=== PATIENT | female | born 1935 | race Caucasian/White ===

== ENCOUNTER → 2016-12-11 | Outpatient (CLI) | payer MEDICARE, OTHER ==
[~2016-12-11] MED LIST: ASPI-482 PO; BESI5DRO OS; CALC-67 PO; CALC500T27 PO; CHOL20002 PO; DOCU100C PO; GABA-585 PO; HYDR-2666 PO; HYDR-2762 PO; HYDR1TAB20 PO; MULT-658 PO; OMEG1CAP16 PO; OMEP20TA PO; PRED5DRO6 LEFTEYE; RISE150T3 PO
--- NOTE | 2016-12-12 03:05 | PAIN ---
DATE OF SERVICE: 12/11/2016 DIAGNOSES: Lumbar radiculopathy with lumbar degenerative disk disease and lumbar spondylosis. HISTORY OF PRESENT ILLNESS: The patient is a 81-year-old female who returns for followup status post medication management with hydrocodone, also gabapentin. The patient reports she has been doing fairly well with this and is on a very stable regimen, has a good decrease in pain of about 70-75% in the low back and leg, has had increased pain recently over the past few months where this weather has been colder outside and reports that she feels that she is beginning to develop some tolerance to the medication. We discussed this in some detail previously and we will make a change on her prescriptions this time to 7.5 mg for the next 90 days and then plan on reducing the pain medication in the future as tolerated. The patient has had appropriate K-TRACS reporting today, appropriate urinalysis today as well. The patient reports the pain is 5 on a scale of 10 today. Describes it constant aching pain across the low back and left lower extremity more than the right and the posterior gluteus, posterolateral thigh and calf, but only intermittent and not present with sitting or lying down. She is sleeping well at night. It is only present with walking, standing more than about 15 minutes or so. The patient reports no new motor or sensory deficits, no new bowel or bladder incontinence or other complaints. PHYSICAL EXAMINATION: VITAL SIGNS: The patient's blood pressure is 147/87, pulse is 105, respirations 18, temperature 97.9 degrees Fahrenheit, height is 5 feet, weight is 116 pounds. GENERAL: The patient is awake, alert, oriented, appropriate, very pleasant demeanor. HEENT: Shows normocephalic, atraumatic. Extraocular movements are intact and symmetrical. Oral cavity shows mucous membranes are moist and pink. The patient wears eye glasses. NECK: Shows anterior throat supple without palpable lymphadenopathy noted. Swallow reflex is symmetrical. Neck shows full rotation and motion of cervical spine, both laterally greater than 45 degrees right and left as well as extension and forward flexion to full extension without difficulty and full flexion without difficulty. CHEST: Shows normal on inspection. Breath sounds are clear to auscultation bilaterally. No wheezes, rales or rhonchi are auscultated. The patient has had well-healed sternotomy scar on inspection. ABDOMEN: Shows nontender, nondistended. No palpable organomegaly. No rebound or guarding demonstrated. HEART: Shows S1 and S2 clear. No murmurs auscultated. BACK: The patient's back shows spine grossly in midline with moderate tenderness to palpation in the middle and lower distribution of the paraspinous muscles bilaterally, but appears roughly symmetrical. No evidence of atrophy, hypertrophy. She has normal muscle girth with palpation, is firm and diffusely tender again to a moderate extent in the low lumbar distribution and mid lumbar distribution without asymmetry. No tenderness over the sacrum or sacroiliac regions. The patient shows good rotation and motion of the lumbar spine both laterally as well as extension and forward flexion without difficulty or pain reported. LOWER EXTREMITIES: Show deep tendon reflexes at 1+ in the patellar and tendo calcaneus tendons. Motor exam is strong with 5/5 dorsiflexion and extension, quadriceps and hamstring flexion approximately 4/5, but is symmetrical. Peripheral pulses are 1+ posterior tibial and dorsalis pedis pulses. No peripheral edema is noted. No clubbing. Lower extremities are warm and dry to touch, equal in color and appearance. The patient is still walking with help of a walker and has a shuffling gait with ambulation. Options were discussed with the patient. The patient's old chart was reviewed, as her current medications regimen and updated. Current review of systems updated today as well. We will refill the patient's medication with 7.5 mg dose of hydrocodone instead of 5 mg that she has been taking ____, indeed she appears to be developing some physiologic tolerance to the medication. The patient was given instruction as well as side effects to be aware of with the medications, a 90-day supply. We will follow up at the end of that time period or sooner as necessary. The patient is also given prescription for gabapentin with instructions, side effects to be aware of each of the medications discussed. The patient will follow up as scheduled. PRAFUL CHOUDHURY MD DR: FRANDY/jeremías JOB#: [id number] / [id number]
== END | disposition home or self-care (01) ==
LOC: PNCL 13:23
PROVIDERS: ATTEND Anesthesiology
DX: M51.16 Intervertebral disc disorders with radiculopathy, lumbar region (principal); M47.896 Other spondylosis, lumbar region
CPT/HCPCS: G0463

== ENCOUNTER → 2017-03-09 | Outpatient (CLI) | payer MEDICARE, OTHER ==
--- NOTE | 2017-03-10 04:19 | PAIN ---
DATE OF SERVICE: PROGRESS NOTE FOR PAIN CLINIC DIAGNOSES: Lumbar radiculopathy with lumbar degenerative disk disease and lumbar spondylosis. HISTORY OF PRESENT ILLNESS: The patient is a 81-year-old female, who returns for followup status post medication management with hydrocodone and gabapentin. The patient reports that she is doing well with this; the gabapentin makes her slightly sleepy. She has been taking 200 mg 3 times a day and was tolerating it fairly well. Reports otherwise that she is having some constipation with the hydrocodone; otherwise, the medicine is about 75% improving her pain. States that she is having some increased pain in her left low back and leg today, rated as an 8 on a scale of 10 and it is ____ about a 5 on a scale of 10. It is aching, sharp, tingling, burning, and radiating, also with some weakness when she is standing more than just about 10 minutes. The patient reports that she was doing some raking in her yard over the past few days and ____ exacerbated the pain and the radiating pain in her left leg. The patient reports no new motor or sensory deficits, no new bowel or bladder incontinence, or other complaints. PHYSICAL EXAMINATION: VITAL SIGNS: Today, the patient's blood pressure is 132/66, pulse 77, respirations 18, temperature 97.7 degrees Fahrenheit, height is 5 feet, and weight is 115 pounds. GENERAL: The patient is awake, alert, oriented, appropriate, very pleasant demeanor. HEENT: Head shows normocephalic, atraumatic. Extraocular movements are intact, symmetrical. Oral cavity, mucous membranes are moist and pink. Dentition is intact. NECK: Shows anterior throat supple without palpable lymphadenopathy noted. Swallow reflex is symmetrical. Neck shows full rotational motion of cervical spine, both laterally as well as extension and flexion without difficulty. CHEST: Shows breath sounds clear to auscultation bilaterally, normal on inspection. HEART: Shows S1 and S2 clear. No murmurs auscultated. ABDOMEN: Soft, nontender, and nondistended. No palpable organomegaly is noted. No rebound or guarding demonstrated. BACK: Shows spine grossly midline. Slight exaggeration of thoracic kyphosis and some flattening of lumbar lordotic curvature. Lumbar paraspinous musculature is symmetrical on inspection; with palpation, it is firm throughout the upper, middle and lower distribution of paraspinous muscles without radiation and without trigger points. The patient does show good rotational motion of lumbar spine, both laterally as well as extension and flexion without significant pain reported. EXTREMITIES: Lower extremities show deep tendon reflexes at 1+ in the patellar tendons. Motor exam is approximately 4 on a scale of 5, but symmetrical and equal with dorsiflexion, extension, and quadriceps and hamstring flexion. Options were discussed with the patient. The patient's old chart was reviewed and her current medication regimen updated. Current review of systems updated today as well. We will proceed with refilling of her gabapentin to 200 mg 3 times daily as well as hydrocodone 7.5 mg with instructions and side effects to be aware of. The patient was given a 2-month prescription and will be return to clinic in approximately 60 days, sooner if necessary. The patient was counseled as to activity levels as well as side effects to be aware of, as well as medication regimen and side effects to be aware of. Also, try Medrol Dosepak to see if this may decrease some of the radicular pain that she is having in her left leg. She is adamantly against trying any interventional techniques since she has had these in the past without success. Also discussed the patient's smoking habits and she is trying to decrease this and encouraged this as well. PRAFUL CHOUDHURY MD DR: FRANDY/jeremías JOB#: [id number] / [id number]
== END | disposition home or self-care (01) ==
LOC: PNCL 11:07
PROVIDERS: ATTEND Anesthesiology
DX: M51.16 Intervertebral disc disorders with radiculopathy, lumbar region (principal); M47.896 Other spondylosis, lumbar region
CPT/HCPCS: G0463

== ENCOUNTER → 2017-05-04 | Outpatient (CLI) | payer MEDICARE, OTHER ==
[~2017-05-04] MED LIST changes: +CALC-31 PO; -CALC-67 PO; -CALC500T27 PO; +CALC500T30 PO; +DOCU-150 PO; -DOCU100C PO; -HYDR-2666 PO; +HYDR-2758 PO; +MULT-99 PO; -OMEG1CAP16 PO; +OMEG1CAP27 PO; -OMEP20TA PO; +OMEP20TA8 PO; +PRED5DRO16 LEFTEYE; -PRED5DRO6 LEFTEYE
--- NOTE | 2017-05-05 05:38 | PAIN ---
DATE OF SERVICE: 05/04/2017 PROGRESS NOTE FOR PAIN CLINIC DIAGNOSES: Lumbar radiculopathy with lumbar degenerative disk disease and lumbar spondylosis. HISTORY OF PRESENT ILLNESS: The patient is an 82-year-old female who returns for followup status post medication management with hydrocodone and gabapentin. The patient reports she is doing very well ____ stable regimen. Still reports pain in the low back and left lower extremity greater than right as previously. The patient has had interventional techniques in the past, but not very significantly improved and reports that she does fairly well with the hydrocodone and gabapentin and is pleased with her progress thus far. The patient reports her pain as a 9 on a scale of 10 at its worst, and is a 5 currently today, on an average is a 6. The patient reports it dull, shooting, tingling, burning with some constant pain in the left foot, which is more of a burning pain and worse at night. The patient reports it awakens her from sleep occasionally, she repositions or takes her pain medication, gets out of bed, changing positions. She can get back to sleep after about 4 hours of sleep, this happens occasionally, not every night. The patient reports no new motor or sensory deficits, no new bowel or bladder incontinence or other complaints. PHYSICAL EXAMINATION: VITAL SIGNS: Today, the patient's blood pressure is 133/73, pulse 72, respirations are 19, temperature 94.0 degrees Fahrenheit. Height is 5 feet, weight is 127 pounds. GENERAL: The patient is awake, alert, oriented, appropriate, very pleasant demeanor. HEENT: Head shows normocephalic, atraumatic. Extraocular movements are intact, symmetrical. Oral cavity, mucous membranes are moist and pink. Dentition is intact. NECK: Shows anterior throat supple without palpable lymphadenopathy noted. Swallow reflex is symmetrical. CHEST: Shows normal on inspection. Breath sounds are clear to auscultation bilaterally. HEART: Shows S1 and S2 clear. ABDOMEN: Soft, nontender, nondistended. No palpable organomegaly. There is no rebound or guarding demonstrated. BACK: Shows spine grossly in the midline. Slight exaggeration of thoracic kyphosis, mild flattening of lumbar lordotic curvature. Lumbar paraspinous musculature shows symmetrical and on inspection with palpation shows moderate tenderness diffusely, but only moderately in the low and mid lumbar distribution. Muscle girth is normal with tight firm musculature bilaterally, but without asymmetry, without trigger points or radiation. No tenderness over the sacroiliac regions over the spinous processes. The patient shows good rotation and motion of the lumbar spine, both laterally as well as extension and flexion without significant pain reported. Lower extremities showed deep tendon reflexes 1+ in the patellar and tendo calcaneus tendons are equal. Motor exam is strong with 5/5 dorsiflexion, extension, quadriceps and hamstring flexion and symmetrical bilaterally. PLAN: Options were discussed with the patient. The patient's old chart was reviewed, her current medication regimen and updated. Current review of systems updated today as well. We will refill the patient's medication, hydrocodone and gabapentin with instructions, side effects to be aware of. I also talked about increasing the gabapentin 3 tablets 3 times daily and she will start to see if this is effective. If better pain control, we will call on additional medications for her for the gabapentin. The patient will return to the clinic in approximately 2 months. I have given 2-month prescription with instructions, side effects to be aware of discussed. Again, the patient has had appropriate K-TRACS reporting as well as appropriate urinalysis to date. We will maintain the patient's medication at this level. PRAFUL CHOUDHURY MD DR: FRANDY/jeremías JOB#: [id number] / [id number]
== END | disposition home or self-care (01) ==
LOC: PNCL 11:37
PROVIDERS: ATTEND Anesthesiology
DX: M51.16 Intervertebral disc disorders with radiculopathy, lumbar region (principal); M47.896 Other spondylosis, lumbar region
CPT/HCPCS: G0463

== ENCOUNTER → 2017-07-14 | Outpatient (CLI) | payer MEDICARE, OTHER ==
--- NOTE | 2017-07-14 15:34 | PAIN ---
DATE OF SERVICE: 07/14/2017 DIAGNOSES: Lumbar radiculopathy with lumbar degenerative disk disease and lumbar spondylosis. HISTORY OF PRESENT ILLNESS: The patient is an 82-year-old female who returns for followup status post medication management with hydrocodone and gabapentin for low back and bilateral lower extremity pain. The patient reports she is doing fairly well with this with about a 75% improvement overall with no side effects with the medications, still some pain in the low back and in the lower extremities bilaterally, but the patient reports she can deal with it, she is able to ambulate with the help of a walker, reports the pain is a 9 on a scale of 10 at its worse with increased activity, 6 at its least and is currently an 8. The patient reports an aching, dull, tingling, burning, stabbing sensation, also becoming constant without the pain medication, and with the medication is about 75% improved as noted and again with no side effects. The patient reports no new motor or sensory deficits, no new bowel or bladder incontinence. She is sleeping well at night, better with sitting or lying down, but worse with standing and walking and feels that she is becoming more in a forward flexed posture and she is trying to keep mindful about this and maintaining good posture. PHYSICAL EXAMINATION: VITAL SIGNS: Today, the patient's blood pressure is 119/74, pulse 72, respirations 18, temperature 97.7 degrees Fahrenheit, height is 5 feet, weight is 111 pounds. GENERAL: The patient is awake, alert, oriented, appropriate, very pleasant demeanor. HEENT: Normocephalic, atraumatic. Extraocular movements are intact, symmetrical. Oral cavity, mucous membranes are moist and pink. Dentition is intact. NECK: Shows anterior throat supple. CHEST: Shows normal on inspection. Breath sounds are clear to auscultation bilaterally. HEART: Shows S1 and S2 clear. ABDOMEN: Soft, nontender, nondistended. No palpable organomegaly. There is no rebound or guarding demonstrated. BACK: Shows spine grossly in midline with increased thoracic kyphosis and some flattening of the lumbar lordotic curvature. Lumbar paraspinous muscles show symmetrical on inspection with palpation shows moderate tenderness throughout the upper, middle and lower distribution, but only diffusely without radiation. No tenderness over the sacrum or sacroiliac regions. Lower extremities show deep tendon reflexes 1+/4 in the patellar and tendo calcaneus tendons are equal. Motor exam is strong with dorsiflexion and extension rated at 4/5, but equal and symmetrical. No peripheral edema is noted. Peripheral pulses are 1+ bilaterally in the posterior tibial distribution. The patient is walking again with the help of a walker without favoring the right or left lower extremity significantly, but with a semi-shuffling gait, again using a walker for ambulation. Options were discussed with the patient and the patient's old chart was reviewed as her current medication regimen updated, and current review of systems updated today as well and we will refill the patient's hydrocodone as well as gabapentin at 300 mg 3 times daily, hydrocodone 7.5 mg up to 4 times a day with instructions and side effects to be aware of discussed with each. The patient will follow up in approximately 2 months, was given prescriptions for 2 months. PRAFUL CHOUDHURY MD DR: FRANDY/jeremías JOB#: [id number] / [id number]
== END | disposition home or self-care (01) ==
LOC: PNCL 10:43
PROVIDERS: ATTEND Anesthesiology
DX: M51.16 Intervertebral disc disorders with radiculopathy, lumbar region (principal); M47.9 Spondylosis, unspecified
CPT/HCPCS: G0463

== ENCOUNTER → 2017-09-08 | Outpatient (CLI) | payer MEDICARE, OTHER ==
--- NOTE | 2017-09-08 12:53 | PAIN ---
DATE OF SERVICE: 09/08/2017 DATE OF SERVICE: 09/08/2017 DIAGNOSES: Lumbar radiculopathy with lumbar degenerative disk disease, lumbar spondylosis. HISTORY OF PRESENT ILLNESS: The patient is an 82-year-old female who returns for followup status post medication management with hydrocodone and gabapentin. The patient reports she has been doing fairly well with this, fairly good reduction in pain about 80% or so, still some significant pain in the left lower extremity, mostly in the posterior gluteus, thigh, lateral anterior thigh, posterior lower leg, anterior lower leg to the foot, worse with walking and standing, but the patient reports that it is "tolerable." The patient reports the gabapentin seems to be doing fairly well. We had increased to two 300 mg dose after her last visit and reports no side effects from its mild sedation initially, but now that seems to be subsiding. The patient reports that she still has pain in the back and leg. It is a tingling, burning quality with aching, sharp and shooting pain as well, rates it as a 9 on a scale of 10 at its worst, 7 on average and a 6 at its least, and it is a 6 today. The patient reports no new motor or sensory deficits, no new bowel or bladder incontinence or other complaints. Again, no significant side effects with the medication. The patient has had appropriate K-TRACS reporting in the past as well as appropriate urinalysis. We will obtain both of these today as well as renew patient's narcotic contract for updated documentation purposes. PHYSICAL EXAMINATION: VITAL SIGNS: Today, the patient's blood pressure 139/86, pulse is 83, respirations are 18, temperature 97.9 degrees Fahrenheit. Height is 5 feet 1 inch, weight is 113 pounds. GENERAL: The patient is awake, alert, oriented, appropriate, very pleasant demeanor. HEENT: Head shows normocephalic, atraumatic. Extraocular movements are intact and symmetrical. Oral cavity shows mucous membranes moist and pink. Dentition is intact. NECK: Shows anterior throat supple without palpable lymphadenopathy noted. Swallow reflex is symmetrical. CHEST: Shows normal on inspection. Breath sounds are clear to auscultation bilaterally. HEART: Shows S1 and S2 clear. ABDOMEN: Soft, nontender, nondistended. No palpable organomegaly, no rebound or guarding demonstrated. BACK: The patient's back shows spine grossly in midline with some mild flattening of lumbar lordotic curvature, with palpation shows some moderate tenderness in the lumbar paraspinous muscles, but are symmetrical on inspection without radiation, without trigger points bilaterally. The patient reports no tenderness with rotational motion, which is about 10 degrees right and left as well as extension 10 degrees, forward flexion 45 degrees without significant pain reported. EXTREMITIES: Lower extremities show deep tendon reflexes 1+ in the patellar and tendo calcaneus tendons. Motor exam remains about 4 on a scale of 5, but equal, good dorsiflexion, extension, quadriceps and hamstring flexion and symmetrical. Peripheral pulses are 1+. No peripheral edema is noted bilaterally. PLAN: Options were discussed with the patient and the patient's old chart was reviewed as her current medication regimen updated. Current review of systems updated today as well. We will refill the patient's hydrocodone for a 2-month prescription 7.5 mg up to 4 times daily as necessary for pain and also gabapentin 300 mg 3 times daily. The patient was given instruction as well as side effects to be aware of each of the medications and will follow up in approximately 2 months or sooner if necessary. Again, the patient has had appropriate K-TRACS reporting, appropriate urinalysis. We will obtain urinalysis today as well as renew the narcotic contract. The patient will be given a copy of this also and will follow up as scheduled. PRAFUL CHOUDHURY MD DR: FRANDY/jeremías JOB#: [id number] / [id number]
== END | disposition home or self-care (01) ==
LOC: PNCL 11:50
PROVIDERS: ATTEND Anesthesiology
DX: M51.16 Intervertebral disc disorders with radiculopathy, lumbar region (principal); M47.9 Spondylosis, unspecified; M79.605 Pain in left leg
CPT/HCPCS: G0463

== ENCOUNTER → 2017-11-03 | Outpatient (CLI) | payer MEDICARE, OTHER ==
--- NOTE | 2017-11-03 22:15 | PAIN ---
DATE OF SERVICE: 11/03/2017 DIAGNOSES: Lumbar radiculopathy with lumbar degenerative disk disease, lumbar spondylosis. HISTORY OF PRESENT ILLNESS: The patient is an 82-year-old female who returns for followup status post medication management with both hydrocodone and gabapentin. The patient reports about 80-85% improvement with medications, is doing quite well with these, no significant side effects, some minor constipation, but is controlling this fairly well with hydration and [id number] laxatives. The patient reports she was standing on her toes, putting some tape on a window a few days back and when she got off her toes, she felt some increased pain in her left low back and left leg, but has been getting better since that time. The patient reports that her pain is a 9 on a scale of 10 at its worst, 8 on average and a 6 at its least and is a 6 today. The patient reports it is sharp, stabbing, shooting, was more constant after standing on her toes with the window taping, but now doing much better. The patient reports she has been sleeping well at night, feels much better with sitting or lying down, worse with standing, walking again with standing on her tiptoes. The patient reports no other complaints, no new motor or sensory deficits, bowel or bladder incontinence or other concerns. PHYSICAL EXAMINATION: VITAL SIGNS: Today, the patient's blood pressure is 132/80, pulse 91, respirations 18, temperature is 97.9 degrees Fahrenheit, height is 5 feet 1 inch, weight is 112 pounds. GENERAL: The patient is awake, alert, oriented, appropriate, has a very pleasant demeanor. HEENT: Shows normocephalic, atraumatic. Extraocular movements are intact and symmetrical. Oral cavity shows mucous membranes are moist and pink. Dentition is intact. NECK: Shows anterior throat is supple without palpable lymphadenopathy noted. Swallow reflex is symmetrical. CHEST: Shows normal on inspection. Breath sounds are clear to auscultation bilaterally. HEART: Shows S1, S2 clear. No murmurs auscultated. ABDOMEN: Soft, nontender, nondistended. No palpable organomegaly is noted. No rebound or guarding demonstrated. MUSCULOSKELETAL: Back shows spine grossly in the midline. Lumbar paraspinous musculature shows normal and symmetrical. Thoracic curvature shows increased thoracic kyphosis. Moderate tenderness with palpation in the low thoracic and lumbar paraspinous muscles throughout the upper, middle and lower distribution without radiation. The patient shows no tenderness over the sacrum or sacroiliac regions. Lower extremities show deep tendon reflexes at 1+ in the patellar and tendo-calcaneus tendons. Motor exam is approximately 4 on a scale of 5 and equal and symmetrical bilaterally with dorsiflexion, extension, quadriceps and hamstring flexion. Peripheral pulses are 1+. No peripheral edema is noted. PLAN: Options were discussed with the patient. The patient's old chart was reviewed as her current medication regimen and updated. Current review of systems updated today as well and we will refill the patient's hydrocodone as well as gabapentin with instructions, side effects to be aware with each of the medications. The patient was encouraged to increase activity as tolerated. She is using a walker still to ambulate. Has a significant shuffling gait, but without significant favoring of one side or the other, right or left lower extremity. The patient was also given samples for Symproic for constipation to try with instructions, side effects to be aware were discussed. If significantly improved, we will have her called in a prescription for these as well. The patient will follow up in approximately 2 months, was given a 60-day prescription supply of medications or sooner if necessary. PRAFUL CHOUDHURY MD DR: FRANDY/jeremías JOB#: [id number] / [id number]
--- NOTE | 2017-11-03 23:23 | PAIN ---
DATE OF SERVICE: 11/03/2017 PROGRESS NOTE FOR PAIN CLINIC DIAGNOSES: Lumbar radiculopathy with lumbar degenerative disk disease and lumbar spondylosis. HISTORY OF PRESENT ILLNESS: The patient is an 82-year-old female who returns for followup status post medication management with both hydrocodone and gabapentin. The patient was last seen on 09/08/2017. The patient reports she is doing fairly well, on a very stable regimen, with approximately 75-80% improvement in her pain with the medication. The patient reports she was standing on her toes the other day and putting some tape on a window, which caused some increased pain in her left hip and leg, but otherwise she is doing fairly well. No new motor or sensory deficits or other complaints. INCOMPLETE DICTATION PRAFUL CHOUDHURY MD DR: FRANDY/jeremías JOB#: [id number] / [id number]
== END | disposition home or self-care (01) ==
LOC: PNCL 11:36
PROVIDERS: ATTEND Anesthesiology
DX: M54.16 Radiculopathy, lumbar region (principal); M47.896 Other spondylosis, lumbar region; M51.36 Other intervertebral disc degeneration, lumbar region; M25.552 Pain in left hip
CPT/HCPCS: G0463

== ENCOUNTER → 2017-12-29 | Outpatient (CLI) | payer MEDICARE, OTHER | END | disposition home or self-care (01) | LOC: PNCL 11:53 | DX: M51.16 Intervertebral disc disorders with radiculopathy, lumbar region (principal); K59.00 Constipation, unspecified | CPT/HCPCS: G0463 ==

== ENCOUNTER → 2018-03-02 | Outpatient (CLI) | payer MEDICARE, OTHER | END | disposition home or self-care (01) | LOC: PNCL 11:35 | DX: M51.16 Intervertebral disc disorders with radiculopathy, lumbar region (principal); M47.816 Spondylosis without myelopathy or radiculopathy, lumbar region | CPT/HCPCS: G0463 ==

== ENCOUNTER 2018-04-20 11:46 | Emergency (ER) | payer MEDICARE, OTHER ==
[2018-04-20] MEDS: ACETAMINOPHEN 325 MG TABLET. PO (12:45)
[2018-04-20] MEDS: IV NORMAL SALINE 500ML BAG 500 ML IV (13:24)
[2018-04-20 13:25] LABS: ADD MAN DIFF? NO
[2018-04-20 13:27] LABS: BASO # 0.1 x10^3/uL (0.0-0.2); BASO % 1 % (0-3); EOS # 0.1 x10^3/uL (0.0-0.7); EOS % 1 % (0-3); HEMATOCRIT 40.4 % (36.0-47.0); HEMOGLOBIN 13.9 g/dL (12.0-15.5); LYMPH # 2.2 x10^3/uL (1.0-4.8); LYMPH % 24 % (24-48); MEAN CORPUSCULAR HEMOGLOBIN 33 pg (25-35); MEAN CORPUSCULAR HGB CONC 34 g/dL (31-37); MEAN CORPUSCULAR VOLUME 97 fL (79-100); MONO # 0.5 x10^3/uL (0.0-1.1); MONO % 6 % (0-9); NEUT # 6.2 x10^3uL (1.8-7.7); NEUT % 68 % (31-73); PLATELET COUNT 186 x10^3/uL (140-400); RED BLOOD COUNT 4.16 x10^6/uL (3.50-5.40); RED CELL DISTRIBUTION WIDTH 12.9 % (11.5-14.5)
[2018-04-20 13:36] LABS: ANION GAP 8 (6-14); BLOOD UREA NITROGEN 16 mg/dL (7-20); BUN/CREATININE RATIO 23 (6-20); CALCIUM 9.3 mg/dL (8.5-10.1); CARBON DIOXIDE 30 mmol/L (21-32); CHLORIDE 103 mmol/L (98-107); CREATININE 0.7 mg/dL (0.6-1.0); GFR 80.3; GLUCOSE 90 mg/dL (70-99); POTASSIUM 4.1 mmol/L (3.5-5.1); SODIUM 141 mmol/L (136-145)
[2018-04-20 13:42] LABS: ALBUMIN 3.8 g/dL (3.4-5.0); ALBUMIN/GLOBULIN RATIO 1.2 (1.0-1.7); ALK PHOS 108 U/L (46-116); ALT (SGPT) 17 U/L (14-59); AST (SGOT) 18 U/L (15-37); MAGNESIUM 2.1 mg/dL (1.8-2.4); TOTAL BILIRUBIN 0.3 mg/dL (0.2-1.0)
[2018-04-20 13:46] LABS: TROPONINI < 0.017 ng/mL (0.000-0.055)
== END 2018-04-20 14:47 | disposition home or self-care (01) ==
LOC: ER 11:46
DX: S00.03XA Contusion of scalp, initial encounter (principal); S30.0XXA Contusion of lower back and pelvis, initial encounter; G89.29 Other chronic pain; J44.9 Chronic obstructive pulmonary disease, unspecified; F17.210 Nicotine dependence, cigarettes, uncomplicated; W18.39XA Other fall on same level, initial encounter; Y93.89 Activity, other specified; Y99.8 Other external cause status; Y92.89 Other specified places as the place of occurrence of the external cause
CPT/HCPCS: 36415; 70450; 71045; 72220; 80053; 83735; 84484; 85025; 93005; 99285-25; J7040

== ENCOUNTER → 2018-05-05 | Outpatient (CLI) | payer MEDICARE, OTHER | END | disposition home or self-care (01) | LOC: PNCL 14:18 | DX: M51.16 Intervertebral disc disorders with radiculopathy, lumbar region (principal); M47.896 Other spondylosis, lumbar region; J44.9 Chronic obstructive pulmonary disease, unspecified | CPT/HCPCS: G0463 ==

== ENCOUNTER → 2018-06-22 | Outpatient (CLI) | payer MEDICARE, OTHER | END | disposition home or self-care (01) | LOC: KCIC CT 12:04 | DX: J43.9 Emphysema, unspecified (principal); I25.10 Atherosclerotic heart disease of native coronary artery without angina pectoris; R91.8 Other nonspecific abnormal finding of lung field; Z87.891 Personal history of nicotine dependence | CPT/HCPCS: 71250 ==

== ENCOUNTER → 2018-07-13 | Outpatient (CLI) | payer MEDICARE, OTHER ==
[2018-04-20 14:00] VITALS: BP 178/79
--- NOTE | 2018-07-13 19:51 | PAIN ---
DATE OF SERVICE: 07/13/2018 PROGRESS NOTE TO THE PAIN CLINIC DIAGNOSES: Lumbar radiculopathy with lumbar degenerative disk disease, lumbar spondylosis. HISTORY OF PRESENT ILLNESS: This is an 83-year-old female who returns for followup status post medication management with hydrocodone and gabapentin. The patient reports she has been doing very well, has been on very stable regimen with about 80% improvement overall with the pain, still some pain, throbbing and aching pain in the left leg greater than the right, but only with extended walking or standing. She is using a walker when she is ambulating. The patient reports pain is aching, sharp, stabbing, becoming constant, severe with standing continuously, but better with sitting or lying down, does not awaken her from sleep at night. She was much better with sitting even for a few minutes, the pain has subsided pretty significantly. The patient reports it is a 9 on a scale of 10 at its worst, 8 on average, 7 at its least and is a 7 today. The patient reports no new motor or sensory deficits, no new bowel or bladder incontinence or other complaints. She has been decreasing her activity recently as the pain has been somewhat more noticeable. She has been somewhat concerned about recent chest x-ray that she had with her primary physician showing an area of shadow on her right lung, this is undergoing further workup at this time. PHYSICAL EXAMINATION: VITAL SIGNS: The patient's blood pressure 121/79, pulse 83, respirations 18, temperature 98.5 degrees Fahrenheit, height is 5 feet 1 inch, weight is 107 pounds. GENERAL: The patient is awake, alert, oriented, appropriate, very pleasant demeanor. HEENT: Head shows normocephalic, atraumatic. Extraocular movements are intact and symmetrical. Oral cavity: Mucous membranes moist and pink. Dentition is intact. NECK: Shows anterior throat supple without palpable lymphadenopathy noted. Swallow reflex symmetrical. CHEST: Shows normal with inspection. Breath sounds are distant, but clear to auscultation bilaterally. No rales, rhonchi or wheezes. HEART: Shows S1, S2 clear. No murmurs auscultated. ABDOMEN: Soft, nontender, nondistended. No palpable organomegaly. There is no rebound or guarding demonstrated. BACK: Shows spine grossly in the midline. Slight exaggeration of thoracic kyphosis and some minor flattening of lumbar lordotic curvature. Lumbar paraspinous muscle shows symmetrical on inspection and palpation, shows some moderate tenderness with palpation, but only diffusely in the low lumbar distribution without radiation. The patient has good rotational motion of lumbar spine, both laterally as well as extension and flexion. EXTREMITIES: The patient's lower extremities show deep tendon reflexes 1+ in the patellar and tendo calcaneus tendons. Motor exam is strong with 5/5 dorsiflexion, extension, quadriceps and hamstring flexion and equal and symmetrical. Peripheral pulses are 1+ posterior tibia. No peripheral edema is noted bilaterally. PLAN: Options were discussed with the patient. The patient's old chart was reviewed as her current medication regimen updated. Current review of systems updated today as well and we will refill the patient's hydrocodone 7.5 mg for 2-month prescription. The patient has had appropriate K-TRACS reporting as well as appropriate urinalysis to date. Also, refilled gabapentin, the patient will take it 3 times daily with instructions and side effects to be aware of as discussed with each medications and the patient will follow up in approximately 2 months as scheduled. Again, the patient had appropriate K-TRACS reporting as well as appropriate urinalysis to date and we will have her return in 2 months or sooner if necessary. PRAFUL CHOUDHURY MD DR: FRANDY/jeremías JOB#: [id number] / [id number]
== END | disposition home or self-care (01) ==
LOC: PNCL 13:44
PROVIDERS: ATTEND Anesthesiology
DX: M51.16 Intervertebral disc disorders with radiculopathy, lumbar region (principal); M47.896 Other spondylosis, lumbar region; J43.9 Emphysema, unspecified; I25.10 Atherosclerotic heart disease of native coronary artery without angina pectoris; Z87.891 Personal history of nicotine dependence
CPT/HCPCS: G0463

== ENCOUNTER 2018-07-29 08:24 | Outpatient (CLI) | payer MEDICARE, OTHER ==
[~2018-07-29] VITALS: Ht 152.4 cm; Wt 48.1 kg
[~2018-07-29 08:24] MED LIST changes: -CHOL20002 PO; +[UNRECOGNIZED DRUG - CODE] PO
[2018-07-29] MEDS ORDERED: SERT25TA4 PO (08:39)
[2018-07-29 08:54] LABS: BASO % 1 % (0-3); EOS # 0.1 x10^3/uL (0.0-0.7); EOS % 1 % (0-3); HEMATOCRIT 42.8 % (36.0-47.0); HEMOGLOBIN 14.4 g/dL (12.0-15.5); LYMPH # 2.5 x10^3/uL (1.0-4.8); LYMPH % 31 % (24-48); MEAN CORPUSCULAR HEMOGLOBIN 32 pg (25-35); MEAN CORPUSCULAR HGB CONC 34 g/dL (31-37); MEAN CORPUSCULAR VOLUME 97 fL (79-100); MONO # 0.5 x10^3/uL (0.0-1.1); MONO % 7 % (0-9); NEUT % 61 % (31-73); PLATELET COUNT 195 x10^3/uL (140-400); RED BLOOD COUNT 4.44 x10^6/uL (3.50-5.40); RED CELL DISTRIBUTION WIDTH 13.3 % (11.5-14.5); WHITE BLOOD COUNT 8.2 x10^3/uL (4.0-11.0)
[2018-07-29 09:13] VITALS: BP 167/74
[2018-07-29] MEDS ORDERED: LIDOCAINE WITH 8.4% SOD BICARB 3 ML DISP.SYRIN. ONE (09:41)
== END 2018-07-29 10:25 | disposition home or self-care (01) ==
LOC: INTRAD 08:24
PROVIDERS: ATTEND Internal Medicine Pulmonary Disease
DX: R91.8 Other nonspecific abnormal finding of lung field (principal); Z53.8 Procedure and treatment not carried out for other reasons; Z88.5 Allergy status to narcotic agent; Z88.8 Allergy status to other drugs, medicaments and biological substances; Z79.01 Long term (current) use of anticoagulants
CPT/HCPCS: 36415; 85025; 85610; 85730

== ENCOUNTER → 2018-11-03 | Outpatient (CLI) | payer MEDICARE, OTHER ==
[~2018-11-03] MED LIST changes: +CHOL20002 PO; -HYDR-2758 PO; +HYDR-2761 PO; -HYDR-2762 PO; +HYDR-2765 PO; +SERT25TA4 PO; -[UNRECOGNIZED DRUG - CODE] PO
--- NOTE | 2018-11-03 18:28 | PAIN ---
DATE OF SERVICE: 11/03/2018 PROGRESS NOTE FOR PAIN CLINIC DIAGNOSES: Lumbar radiculopathy with lumbar degenerative disk disease and lumbar spondylosis. HISTORY OF PRESENT ILLNESS: The patient is an 83-year-old female who returns for followup status post medication management with hydrocodone. The patient does fairly well with this, has been on very stable regimen, reports still good decrease in pain about 75-80% with the medication without significant side effects except for constipation for which she is taking Symproic, which decreased the constipation by 100%. The patient reports pain is still in the low back, left lower extremity, mostly in the posterior gluteus, posterior thigh, posterior calf, anterior thigh, anterior calf, 9 on a scale of 10 at its worst, 8 on average and 8 at its least and is an 8 today. The patient reports aching, sharp, shooting, worse with walking, standing, changing positions. The patient reports that her sister about 2 weeks ago and she has been somewhat emotional about this and her pain seems to be worse since this happened. The patient reports it is waking her from sleep at night about every 6 hours. She can easily reposition and get back to sleep. The patient reports no new motor or sensory deficits, no new bowel or bladder incontinence or other complaints. PHYSICAL EXAMINATION: VITAL SIGNS: The patient's blood pressure is 145/78, pulse 83, respirations 18, temperature 98.2 degrees Fahrenheit. Height is 5 feet 1 inches, weighs 111 pounds. GENERAL: The patient is awake, alert, oriented, appropriate, very pleasant demeanor. HEENT: Head is normocephalic, atraumatic. Extraocular movements are intact and symmetrical. Oral cavity: Mucous membranes moist and pink. Dentition is intact. NECK: Shows anterior throat supple without palpable lymphadenopathy noted. Swallow reflex symmetrical. CHEST: Shows normal with inspection. Breath sounds clear to auscultation bilaterally. HEART: Shows S1, S2 clear. ABDOMEN: Soft, nontender, nondistended. BACK: Shows spine grossly in the midline. Normal appearing thoracic kyphosis and lumbar lordotic curvature. Lumbar paraspinous muscle shows symmetrical on inspection. On palpation shows some moderate tenderness diffusely throughout the upper, middle and lower distribution of paraspinous muscles, but without radiation. The patient has good rotational motion both laterally as well as extension and flexion without significant difficulty. EXTREMITIES: The patient's lower extremities show deep tendon reflexes 1+ in the patellar and tendo calcaneus tendons are equal. Motor exam is strong with 4/5 dorsiflexion, extension, equal and symmetrical bilaterally. Peripheral pulses are 1+, posterior tibia. No peripheral edema is noted. Options were discussed with the patient. The patient's old chart was reviewed as her current medication regimen updated. Current review of systems updated today as well. We will refill the patient's hydrocodone and gabapentin for a 2-month prescription. The patient has had appropriate urinalysis as well as appropriate K-TRACS reporting to date. We will refill this for 2 months. The patient was given instruction as well as side effects to be aware of. The patient will return to clinic in approximately 2 months as noted. PRAFUL CHOUDHURY MD DR: FRANDY/jeremías JOB#: [id number] / [id number]
== END | disposition home or self-care (01) ==
LOC: PNCL 11:55
PROVIDERS: ATTEND Anesthesiology
DX: M51.16 Intervertebral disc disorders with radiculopathy, lumbar region (principal); M47.26 Other spondylosis with radiculopathy, lumbar region; K59.03 Drug induced constipation
CPT/HCPCS: G0463

== ENCOUNTER → 2019-03-02 | Outpatient (CLI) | payer MEDICARE, OTHER ==
--- NOTE | 2019-03-03 03:02 | PAIN ---
DATE OF SERVICE: 03/02/2019 PROGRESS NOTE FOR PAIN CLINIC DIAGNOSES: Lumbar radiculopathy with lumbar degenerative disk disease and lumbar spondylosis. HISTORY OF PRESENT ILLNESS: The patient is an 83-year-old female who returns for followup status post medication management with hydrocodone and also gabapentin. The patient reports she is doing very well with this and has been on a very stable regimen at 7.5 mg, also the gabapentin was 300 mg. The patient reports no significant side effects. Still pain in the low back and bilateral lower extremities, mostly in the back itself, slightly worse on the left than the right; worse with walking, standing or changing positions; better with sitting or lying down. It does not awaken her from sleep at night. The patient reports that she is doing fairly well. Describes the pain as aching and dull, stabbing, becoming radiating and constant if she is on her feet more than about 20 minutes, but otherwise, she is fairly well with sitting and lying down. The patient reports her pain is a 9 on a scale of 10 at its worst, 8 on average, 7 at its least over the past week and is a 7 today. The patient reports no new motor or sensory deficits. No new bowel or bladder incontinence. The patient reports she did have a meeting with her inspector precision, who was recommending a lung biopsy, but the patient refuses to have a biopsy at this time and wishes to consider her options further. PHYSICAL EXAMINATION: VITAL SIGNS: The patient's blood pressure is 154/69, pulse 80, respirations 18 and temperature 98.1 degrees Fahrenheit. Height is 5 feet, weight is 120 pounds. GENERAL: The patient is awake, alert, oriented and appropriate. She has a very pleasant demeanor. HEENT EXAMINATION: Shows normocephalic, atraumatic. Extraocular movements are intact and symmetrical. Oral cavity, mucous membranes are moist and pink. Dentition is intact. NECK: Shows anterior throat supple, without palpable lymphadenopathy noted. Swallow reflex is symmetrical. CHEST: Shows normal on inspection. Breath sounds are coarse, but clear without rales, rhonchi or wheezes bilaterally. ABDOMEN: Soft, nontender and nondistended. No palpable organomegaly is noted. BACK: Shows spine grossly in the midline. Slight exaggeration of the thoracic kyphosis, some minor flattening of the cervical lordotic curvature and flattening of the lumbar lordotic curvature. Paraspinous musculature in the lumbar distribution shows symmetrical on inspection. With palpation, it shows some moderate tenderness bilaterally diffusely, but only diffusely, without radiation. EXTREMITIES: The patient's lower extremities show deep tendon reflexes 1+ in the patellar and tendo calcaneus tendons. Motor exam is approximately 4 on a scale of 5, but equal and symmetrical bilaterally. No peripheral edema is noted. Peripheral pulses are 1+ posterior tibial bilaterally. Options were discussed with the patient. The patient's old chart was reviewed as was her current medication regimen updated. Current review of systems was updated today as well. We will proceed with refilling the patient's hydrocodone as well as gabapentin. The patient has had appropriate K-TRACS reporting as well as appropriate urinalysis to date. We will refill the patient's medications for a 2-month period. The patient was given instructions as well as side effects to be aware of with the medications and we will follow up in approximately 2 months or sooner as necessary. PRAFUL CHOUDHURY MD DR: FRANDY/jeremías JOB#: [id number] / [id number]
== END | disposition home or self-care (01) ==
LOC: PNCL 11:21
PROVIDERS: ATTEND Anesthesiology
DX: M51.16 Intervertebral disc disorders with radiculopathy, lumbar region (principal); M47.26 Other spondylosis with radiculopathy, lumbar region
CPT/HCPCS: G0463

== ENCOUNTER → 2019-04-27 | Outpatient (CLI) | payer MEDICARE, OTHER ==
--- NOTE | 2019-04-27 23:25 | PAIN ---
DATE OF SERVICE: 04/27/2019 PROGRESS NOTE FOR PAIN CLINIC DIAGNOSES: Lumbar radiculopathy with lumbar degenerative disk disease, lumbar spondylosis. HISTORY OF PRESENT ILLNESS: The patient is an 84-year-old female who returns for followup status post medication management with hydrocodone and gabapentin. The patient reports she was doing very well, had been on a stable regimen with this, still some significant pain in the low back and right leg, but better with the medication and she is able to increase her activities to a moderate extent. The patient reports she does not do much generally, is fairly immobile, but when she is up and around she uses her walker and/or cane. The patient reports that the pain is 9 on a scale of 10 over the past week at its worst, 7 on average, 5 at its least and is 5 today. The patient reports it is aching, stabbing, sometimes constant in the back and leg with walking, standing, although it does not awaken her from sleep at night. The patient reports it is better with sitting or lying down and the pain is almost gone. The patient reports no side effects with the medication. She has been on a stable regimen of hydrocodone and gabapentin, which she does feel decreased the pain by about 75% overall. PHYSICAL EXAMINATION: VITAL SIGNS: The patient's blood pressure is 123/61, pulse 83, respirations are 18, temperature 98.1 degrees Fahrenheit, height is 5 feet, weight is 107 pounds. GENERAL: The patient is awake, alert, oriented, appropriate, very pleasant demeanor. HEENT: Head shows normocephalic, atraumatic. Extraocular movements are intact and symmetrical. Oral cavity: Mucous membranes moist and pink. Dentition is intact. NECK: Shows anterior throat supple without palpable lymphadenopathy noted. Swallow reflex is symmetrical. CHEST: Shows normal on inspection. Breath sounds clear to auscultation bilaterally. HEART: Shows S1, S2 clear. No murmurs auscultated. ABDOMEN: Soft, nontender, nondistended. No palpable organomegaly is noted. BACK: Shows spine grossly in the midline. Slight exaggeration of thoracic kyphosis, some minor flattening of cervical lordotic curvature and lumbar lordotic curvature. Lumbar paraspinous muscle shows symmetrical on inspection; with palpation shows some mild tenderness throughout the upper, middle and lower distribution of paraspinous muscles bilaterally, but shows good rotational motion greater than 10 degrees right and left as well as extension greater than 10 degrees, forward flexion 45 degrees with significant increase in pain. EXTREMITIES: Lower extremities show deep tendon reflexes 1+ in the patellar and tendo calcaneus tendons equal. Motor exam is approximately 4 on a scale of 5, but symmetrical with dorsiflexion, extension, quadriceps and hamstring flexion bilaterally. Peripheral pulses are 1+. No peripheral edema is noted to bilateral extremities. Options were discussed with the patient. The patient's old chart was reviewed as was her current medication regimen updated. Current review of systems updated today as well. We will refill the patient's hydrocodone as well as gabapentin. The patient has had appropriate K-TRACS reporting as well as appropriate urinalysis to date. We will refill the patient's medication for a 2-month period. The patient was given instruction as well as side effects to be aware of with medications and will follow up in approximately 2 months or sooner as necessary. PRAFUL CHOUDHURY MD DR: FRANDY/nts JOB#: [id number] / [id number]
== END | disposition home or self-care (01) ==
LOC: PNCL 11:58
PROVIDERS: ATTEND Anesthesiology
DX: M51.16 Intervertebral disc disorders with radiculopathy, lumbar region (principal); M47.26 Other spondylosis with radiculopathy, lumbar region; M40.294 Other kyphosis, thoracic region
CPT/HCPCS: G0463

== ENCOUNTER → 2019-06-29 | Outpatient (CLI) | payer MEDICARE, OTHER ==
--- NOTE | 2019-06-30 03:59 | PAIN ---
DATE OF SERVICE: 06/29/2019 PROGRESS NOTE FOR PAIN CLINIC DIAGNOSES: Lumbar radiculopathy with lumbar degenerative disk disease and lumbar spondylosis. HISTORY OF PRESENT ILLNESS: The patient is an 84-year-old female who returns for followup status post medication management with hydrocodone and gabapentin. The patient reports she was doing very well with this, has been on a very stable regimen. Still some pain in the left leg, which stays about the same. The patient reports she is able to get around with her walker and the pain control is fairly good with the medications without specific side effects. She does have some constipation. She is doing better with some Symproic and we will give her some samples of this as well today. The patient reports the pain is tingling, burning, stabbing, cramping, aching in the low back and left leg as it was previously, but again fairly well controlled with overall pain improved by about 75%-80% with the medications. The patient reports she is sleeping better at night, better with sitting or lying down, does not bother her when she is on her feet. The patient reports her pain is a 9 on a scale of 10 at its worst, 8 on average, 7 at its least, and is 7 today. PHYSICAL EXAMINATION: VITAL SIGNS: The patient's blood pressure 126/73, pulse 76, respirations 16, temperature 98.2 degrees Fahrenheit and weight is 101 pounds. GENERAL: The patient is awake, alert, oriented, appropriate, and very pleasant demeanor. HEENT: Head shows normocephalic and atraumatic. Extraocular movements are intact and symmetrical. The patient is wearing eyeglasses. Oral cavity: Mucous membranes are moist and pink. Dentition is poor, but intact. NECK: Shows anterior throat supple, without palpable lymphadenopathy noted. Swallow reflex symmetrical. CHEST: Shows normal on inspection. Breath sounds clear to auscultation bilaterally. HEART: Shows S1 and S2 clear. No murmurs auscultated. ABDOMEN: Soft, nontender, and nondistended. No palpable organomegaly is noted. No rebound or guarding demonstrated. BACK: Shows spine grossly in the midline. Normal-appearing thoracic kyphosis; slightly increased thoracic kyphosis rather and slightly flattened lumbar lordotic curvature. Lumbar paraspinous muscle shows symmetrical on inspection and palpation shows some moderate tenderness, but only diffusely throughout the upper, middle and lower distribution of the paraspinous musculature. EXTREMITIES: The patient's lower extremities show deep tendon reflexes at 1+ in the patellar and tendo calcaneus tendons are equal. Motor exam is approximately 4 on a scale of 5 with dorsiflexion, extension, but symmetrical bilaterally. Peripheral pulses are 1+ posterior tibia. No peripheral edema is noted bilaterally. Options were discussed with the patient. The patient's old chart was reviewed as her current medication regimen updated. Current review of systems updated today as well. We will refill the patient's hydrocodone as well as gabapentin for a 90-day supply. The patient was given instruction as well as side effects to be aware of each of the medications. The patient has had appropriate K-TRACS reporting as well as appropriate urinalysis to date. We will renew the patient's narcotic contract today as well and have her return in approximately 90 days or sooner as necessary. PRAFUL CHOUDHURY MD DR: FRANDY/jeremías JOB#: [id number] / [id number]
== END | disposition home or self-care (01) ==
LOC: PNCL 14:44
PROVIDERS: ATTEND Anesthesiology
DX: M51.16 Intervertebral disc disorders with radiculopathy, lumbar region (principal); M47.26 Other spondylosis with radiculopathy, lumbar region; M40.294 Other kyphosis, thoracic region; M40.46 Postural lordosis, lumbar region
CPT/HCPCS: G0463

== ENCOUNTER 2019-08-20 19:03 | Inpatient (IN) | payer MEDICARE, OTHER ==
[~2019-08-20] VITALS: Ht 157.5 cm; Wt 43.3 kg
--- NOTE | 2019-08-20 19:45 | PHYS DOC ---
Past Medical History Past Medical History: Cancer Additional Past Medical Histor: chronic back pain Past Surgical History: Appendectomy, Cholecystectomy, Hysterectomy Additional Past Surgical Histo: lt bipolar hemiarthroplasty, cataract Alcohol Use: None Drug Use: None Adult General Chief Complaint Chief Complaint: MECHANICAL FALL [facility] HPI Patient is a 84 year old [female was brought in by ambulance after a fall. She fell on her kitchen she does not know what happened she might have slipped she did not lose consciousness she remembers going down hitting her head. She went to her left chest she has some mild soreness in that area since the fall. No loss of consciousness no vomiting no recent fever no abdominal pain. she has been sob and coughing more than usual lately. she reports a hx of throat cancer but does not report a known dx of lung cancer Review of Systems Review of Systems Constitutional: wekness, weight loss Eyes: Denies change in visual acuity, redness, or eye pain [] HENT: Denies nasal congestion or sore throat [] Respiratory:cough Cardiovascular: No additional information not addressed in HPI [] GI: Integument: Denies rash or skin lesions [] Neurologic: All other systems were reviewed and found to be within normal limits, except as documented in this note. Allergies Allergies Allergies Coded Allergies Type Severity Reaction Last Updated Verified iodine Allergy Intermediate Swelling 03/14/14 Yes aspirin Allergy Mild stomach pain 11/01/13 Yes codeine Allergy Mild abdominal pain 03/14/14 Yes Physical Exam Physical Exam Constitutional: Well developed, patient is under nourished appears cachectic smells like cigarettes HENT: Normocephalic, 1 Center laceration to the left temporal area with associated ecchymosis bilateral external ears normal, oropharynx moist, no oral exudates, nose normal. [] Eyes: PERRLA, EOMI, conjunctiva normal, no discharge. [] Neck: Normal range of motion, mild C-spine tenderness C3-C4 Cardiovascular:Heart rate regular rhythm, no murmur [] Lungs & Thorax: Bilateral breath sounds clear to auscultation []faint wheezing noted there is mild chest wall tenderness with no obvious trauma no crepitus Abdomen: Bowel sounds normal, soft, no tenderness, no masses, no pulsatile masses. [] Skin: Warm, dry, no erythema, no rash. [] Back: No tenderness, no CVA tenderness. [] Extremities: No tenderness, no cyanosis, no clubbing, ROM intact, no edema. [] Neurologic: Alert and oriented X 3, normal motor function, normal sensory function, no focal deficits noted. [] Psychologic: Affect normal, judgement normal, mood normal. [] Current Patient Data Vital Signs Vital Signs Date Time Temp Pulse Resp B/P (MAP) Pulse Ox O2 Delivery O2 Flow Rate FiO2 08/20/19 19:03 98.5 98 18 148/81 (103) 98 Room Air 98.5 Lab Values Laboratory Tests Test 08/20/19 19:50 08/20/19 20:35 White Blood Count 11.4 x10^3/uL (4.0-11.0) H Red Blood Count 4.39 x10^6/uL (3.50-5.40) Hemoglobin 13.6 g/dL (12.0-15.5) Hematocrit 41.0 % (36.0-47.0) Mean Corpuscular Volume 93 fL (79-100) Mean Corpuscular Hemoglobin 31 pg (25-35) Mean Corpuscular Hemoglobin Concent 33 g/dL (31-37) Red Cell Distribution Width 13.2 % (11.5-14.5) Platelet Count 270 x10^3/uL (140-400) Neutrophils (%) (Auto) 86 % (31-73) H Lymphocytes (%) (Auto) 9 % (24-48) L Monocytes (%) (Auto) 5 % (0-9) Eosinophils (%) (Auto) 0 % (0-3) Basophils (%) (Auto) 0 % (0-3) Neutrophils # (Auto) 9.8 x10^3/uL (1.8-7.7) H Lymphocytes # (Auto) 1.1 x10^3/uL (1.0-4.8) Monocytes # (Auto) 0.5 x10^3/uL (0.0-1.1) Eosinophils # (Auto) 0.0 x10^3/uL (0.0-0.7) Basophils # (Auto) 0.1 x10^3/uL (0.0-0.2) Segmented Neutrophils % 82 % (35-66) H Band Neutrophils % 1 % (0-9) Lymphocytes % 13 % (24-48) L Monocytes % 4 % (0-10) Platelet Estimate Adequate (ADEQUATE) Prothrombin Time 12.8 SEC (11.7-14.0) Prothrombin Time INR 1.0 (0.8-1.1) Sodium Level 141 mmol/L (136-145) Potassium Level 4.2 mmol/L (3.5-5.1) Chloride Level 102 mmol/L (98-107) Carbon Dioxide Level 31 mmol/L (21-32) Anion Gap 8 (6-14) Blood Urea Nitrogen 13 mg/dL (7-20) Creatinine 0.7 mg/dL (0.6-1.0) Estimated GFR (Cockcroft-Gault) 80.1 BUN/Creatinine Ratio 19 (6-20) Glucose Level 112 mg/dL (70-99) H Calcium Level 10.3 mg/dL (8.5-10.1) H Total Bilirubin 0.3 mg/dL (0.2-1.0) Aspartate Amino Transferase (AST) 16 U/L (15-37) Alanine Aminotransferase (ALT) 13 U/L (14-59) L Alkaline Phosphatase 122 U/L (46-116) H Troponin I Quantitative < 0.017 ng/mL (0.000-0.055) Total Protein 8.1 g/dL (6.4-8.2) Albumin 3.5 g/dL (3.4-5.0) Albumin/Globulin Ratio 0.8 (1.0-1.7) L Urine Collection Type Unknown Urine Color Yellow Urine Clarity Clear Urine pH 6.0 Urine Specific [place] 1.015 Urine Protein Negative mg/dL (NEG-TRACE) Urine Glucose (UA) Negative mg/dL (NEG) Urine Ketones (Stick) Trace mg/dL (NEG) Urine Blood Negative (NEG) Urine Nitrite Negative (NEG) Urine Bilirubin Negative (NEG) Urine Urobilinogen Dipstick 0.2 mg/dL (0.2 mg/dL) Urine Leukocyte Esterase Moderate (NEG) Urine RBC 0 /HPF (0-2) Urine WBC 11-20 /HPF (0-4) Urine Squamous Epithelial Cells Few /LPF Urine Bacteria Many /HPF (0-FEW) Urine Hyaline Casts Few /HPF Urine Mucus Mod /LPF Laboratory Tests 08/20/19 19:50 Laboratory Tests 08/20/19 19:50 EKG EKG []Normal sinus rhythm rate of 99 no acute ischemic changes noted no STEMI interpreted by me the time of encounter QTc is 421 Radiology/Procedures Radiology/Procedures []CT scan of the head without contrast 08/20/2019 Clinical History: Head trauma. Technique: Unenhanced, contiguous, 5 mm axial sections were obtained through the head. One or more of the following individualized dose reduction techniques were utilized for this study: 1. Automated exposure control. 2. Adjustment of the mA and/or kV according to patient size. 3. Use of iterative reconstruction technique. Findings: Comparison study is dated 08/20/2019. There is generalized parenchymal atrophy. Areas of decreased attenuation are seen within the periventricular and subcortical white matter of both cerebral hemispheres consistent with areas of small vessel ischemic disease. Acute subarachnoid hemorrhage is seen surrounding both cerebral hemispheres, particularly in the left frontal region. No acute parenchymal abnormality is seen. No skull fracture is seen. Impression: Acute subarachnoid hemorrhage is seen surrounding both cerebral hemispheres, particularly in the left frontal region. No additional acute intracranial abnormality is seen. CT scan of the cervical spine without contrast 08/20/2019 Clinical history: Neck injury. Technique: Unenhanced, contiguous, 0.625 mm axial sections were obtained through the cervical spine. Axial, coronal and sagittal reconstructed images were obtained. One or more of the following individualized dose reduction techniques were utilized for this study: 1. Automated exposure control. 2. Adjustment of the mA and/or kV according to patient size. 3. Use of iterative reconstruction technique. Findings: Sagittal and coronal reconstructed images demonstrate mild straightening of the normal cervical lordosis. Degenerative changes consisting of disc space narrowing, vertebral endplate sclerosis and mild to moderate anterior and posterior vertebral body osteophyte formation are seen involving the mid and lower cervical disc spaces. Atherosclerotic calcification is seen in region carotid bifurcations. No fracture or subluxation cervical vertebrae seen. Degenerative changes are seen involving the uncovertebral and facet joints throughout the cervical disc spaces. Atherosclerotic calcifications in the region of the carotid bifurcations. Impression: No fracture or subluxation of the cervical vertebra is identified. These findings were discussed with Dr. Beyer. Electronically signed by: Brandyn Lawler MD (08/20/2019 8:56 PM) [facility] DICTATED and SIGNED BY: BRANDYN LAWLER MD DATE: 08/20/192055 Impressions: IMPRESSION: 4.5 cm masslike opacity is seen involving the right upper lobe which has increased in size since the previous examination. This is concerning for a neoplastic process such as bronchogenic carcinoma as discussed above. Electronically signed by: Brandyn Lawler MD (08/20/2019 10:09 PM) [facility] DICTATED and SIGNED BY: BRANDYN LAWLER MD DATE: 08/20/192208 Course & Med Decision Making Course & Med Decision Making Pertinent Labs and Imaging studies reviewed. (See chart for details) []Procedure note: laceration repair. verbal consent was obtained the area the left temporal area 1 cm laceration was irrigated per usual technique no foreign body was identified Steri-Strips and Dermabond were used to obtain excellent hemostasis and skin approximation patient tolerated well This is an 84-year-old female with the above past medical history who is presenting after a fall sounds probably mechanical in nature she doesn't specifically recall a true slipping however there is no loss of consciousness PLAN FOR ct head/cspine basic labs, and go from there. utd on tetanus she tells me she got it at [facility] cxr rul mass could be malignancy or postobstructive pna. I received the CT report from the radiologist this patient has subarachnoid hemorrhage and went back to evaluate her again her Jose Antonio Coma Scale is a 15. I was planning to consult neurosurgery talked her in detail about her diagnosis. She from my chart review had a PET scan in 2018 that showed metastatic cancer and her lungs she reports no memory or knowledge of this. Nevertheless she does not want to pursue any treatment she really after I told her about the subarachnoid hemorrhage said that she really just wanted to go home she has no family she has been living for very long time and if she were to in her sleep she would be okay with that. She did have a neighbor that she wanted to call to come pick her up. I told her I spent 20 minutes talking with her ABOUT THE chest xray finding c/f worsening malignancy and/or postobstructive pneumonia as well as the subarachnoid hemorrhage. i told her that if she did not want to pursue treatment that we should admit her for comfort care, pain control and hospice evaluation/referral. ultimately i convinced her to stay. i talked with dr shannon. given her goals of care i dont think acute surgical consultation is necessary at this time. ordered abx and iv fluids and pain control pt agreeable to plan i beleive she can understand the risks and benefits of the decision dnr Dragon Disclaimer Dragon Disclaimer This electronic medical record was generated, in whole or in part, using a voice recognition dictation system. Departure Departure Impression: Primary Impression: Laceration Additional Impression: Need for comfort care Disposition: 09 ADMITTED INPATIENT Admitting Physician: SHAQ Condition: STABLE Referrals: LEELA PINTO MD (PCP) Problem Qualifiers RADU BEYER MD Aug 20, 2019 19:44
[2019-08-20 19:54] LABS: BASO # 0.1 x10^3/uL (0.0-0.2); BASO % 0 % (0-3); EOS % 0 % (0-3); HEMOGLOBIN 13.6 g/dL (12.0-15.5); LYMPH # 1.1 x10^3/uL (1.0-4.8); LYMPH % 9 % (24-48); MEAN CORPUSCULAR HEMOGLOBIN 31 pg (25-35); MEAN CORPUSCULAR HGB CONC 33 g/dL (31-37); MEAN CORPUSCULAR VOLUME 93 fL (79-100); MONO # 0.5 x10^3/uL (0.0-1.1); MONO % 5 % (0-9); NEUT # 9.8 x10^3/uL (1.8-7.7); NEUT % 86 % (31-73); PLATELET COUNT 270 x10^3/uL (140-400); RED BLOOD COUNT 4.39 x10^6/uL (3.50-5.40); RED CELL DISTRIBUTION WIDTH 13.2 % (11.5-14.5); WHITE BLOOD COUNT 11.4 x10^3/uL (4.0-11.0)
[2019-08-20 20:02] LABS: CALCIUM 10.3 mg/dL (8.5-10.1); CREATININE 0.7 mg/dL (0.6-1.0); GFR 80.1; POTASSIUM 4.2 mmol/L (3.5-5.1)
[2019-08-20 20:08] LABS: ALBUMIN 3.5 g/dL (3.4-5.0); ALBUMIN/GLOBULIN RATIO 0.8 (1.0-1.7); TOTAL BILIRUBIN 0.3 mg/dL (0.2-1.0); TOTAL PROTEIN 8.1 g/dL (6.4-8.2)
[2019-08-20 20:19] LABS: % BANDS 1 % (0-9); % LYMPHS 13 % (24-48); % MONOS 4 % (0-10); % SEGS 82 % (35-66)
[2019-08-20 20:20] LABS: PLT ESTIMATE ADEQUATE (ADEQUATE)
[2019-08-20 20:48] LABS: BILIRUBIN,URINE NEGATIVE (NEG); CLARITY,URINE CLEAR; COLOR,URINE YELLOW; NITRITE,URINE NEGATIVE (NEG); PROTEIN,URINE NEGATIVE (NEG-TRACE); UROBILINOGEN,URINE 0.2 mg/dL (0.2 mg/dL)
[2019-08-20 20:55] LABS: BACTERIA,URINE MANY /HPF (0-FEW); HYALINE CASTS, URINE FEW /HPF; RBC,URINE 0 /HPF (0-2); SQUAMOUS EPITHELIAL CELL,UR FEW /LPF
--- NOTE | 2019-08-20 20:59 | RAD ---
CT scan of the head without contrast 08/20/2019 Clinical History: Head trauma. Technique: Unenhanced, contiguous, 5 mm axial sections were obtained through the head. One or more of the following individualized dose reduction techniques were utilized for this study: 1. Automated exposure control. 2. Adjustment of the mA and/or kV according to patient size. 3. Use of iterative reconstruction technique. Findings: Comparison study is dated 08/20/2019. There is generalized parenchymal atrophy. Areas of decreased attenuation are seen within the periventricular and subcortical white matter of both cerebral hemispheres consistent with areas of small vessel ischemic disease. Acute subarachnoid hemorrhage is seen surrounding both cerebral hemispheres, particularly in the left frontal region. No acute parenchymal abnormality is seen. No skull fracture is seen. Impression: Acute subarachnoid hemorrhage is seen surrounding both cerebral hemispheres, particularly in the left frontal region. No additional acute intracranial abnormality is seen. CT scan of the cervical spine without contrast 08/20/2019 Clinical history: Neck injury. Technique: Unenhanced, contiguous, 0.625 mm axial sections were obtained through the cervical spine. Axial, coronal and sagittal reconstructed images were obtained. One or more of the following individualized dose reduction techniques were utilized for this study: 1. Automated exposure control. 2. Adjustment of the mA and/or kV according to patient size. 3. Use of iterative reconstruction technique. Findings: Sagittal and coronal reconstructed images demonstrate mild straightening of the normal cervical lordosis. Degenerative changes consisting of disc space narrowing, vertebral endplate sclerosis and mild to moderate anterior and posterior vertebral body osteophyte formation are seen involving the mid and lower cervical disc spaces. Atherosclerotic calcification is seen in region carotid bifurcations. No fracture or subluxation cervical vertebrae seen. Degenerative changes are seen involving the uncovertebral and facet joints throughout the cervical disc spaces. Atherosclerotic calcifications in the region of the carotid bifurcations. Impression: No fracture or subluxation of the cervical vertebra is identified. These findings were discussed with Dr. eByer. Electronically signed by: Brandyn Lawler MD (08/20/2019 8:56 PM) [facility]
[2019-08-20 21:15] LABS: PROTHROMBIN TIME PATIENT 12.8 SEC (11.7-14.0)
--- NOTE | 2019-08-20 22:12 | RAD ---
AP portable chest radiograph 08/20/2019 Clinical History: Trauma with left chest pain. An AP erect portable digital radiograph of the chest was obtained. Comparison study is dated 04/20/2018. The cardiac silhouette is normal in size. Atherosclerotic calcification thoracic aorta is seen. The thoracic aorta is mildly tortuous. Emphysematous changes are seen involving both lungs. A 4.5 cm masslike opacity is seen involving the right upper lobe which has increased in size since the previous study where it measured approximately 1 cm in greatest diameter. This is concerning for a neoplastic process such as bronchogenic carcinoma or possibly a lung metastasis. No acute pulmonary infiltrate is seen. No pleural effusion or pneumothorax is noted. There is diffuse osteopenia of the visualized bony structures. Degenerative changes are seen involving the thoracic spine and both shoulders. IMPRESSION: 4.5 cm masslike opacity is seen involving the right upper lobe which has increased in size since the previous examination. This is concerning for a neoplastic process such as bronchogenic carcinoma as discussed above. Electronically signed by: Brandyn Lawler MD (08/20/2019 10:09 PM) [facility]
[2019-08-20] MEDS ORDERED: ONDANSETRON PF 4 MG/2 ML VIAL. IV PRN (22:15)
[2019-08-20] MEDS ORDERED: DOXYCYCLINE HYCLATE 100 MG in IV DEXTROSE 5% 100ML 100 ML IV ONE (22:15)
[2019-08-20] MEDS ORDERED: cefTRIAXone IV Push 1 GM VIAL. IVP ONE (22:15)
[2019-08-20] MEDS ORDERED: MORPHINE SULFATE 4 MG/ML VIAL. IV PRN (22:15)
[2019-08-20 23:15] VITALS: BP 148/69
[2019-08-21] MEDS: IV NORMAL SALINE 1000ML BAG 1,000 ML IV SCH ×2 (00:06→11:35)
[2019-08-21 03:17] VITALS: BP 137/67
[2019-08-21 07:00] VITALS: BP 130/58
--- NOTE | 2019-08-21 09:11 | PDOC1 ---
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 UTD on tetanus she tells me she got it at [facility]. CXR reveals a right upper lobe mass could be malignancy or postobstructive pna. CT head shows subarachnoid hemorrhage. She did have a neighbor that she wanted to call to come pick her up. She told the ED she would like to go home and in her sleep and does not wish for any surgery and does not want to talk about cancer. EKG - Normal sinus rhythm rate of 99 no acute ischemic changes noted no STEMI, QTc is 421. Ca 10.3, otherwise labs WNL. ED performed head laceration repair to the left temporal area 1 cm laceration. June 2018 she had abnormal chest imaging which included CT and PET scan which showed several RUL nodules which were pet avid suggestive of malignancy. She declined further care and has not followed up with a physician since then. She has lost about 25 pounds of weight in last year. Not currently having pain, but has had some visits with pain clinic about lumbar radiculopathy which I think is likely unrelated. 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 No other living family. Lives in a mobile home Family History: Depression (mother), Hypertension (father) Social History Smoke: 1 pack per day ALCOHOL: none Drugs: None Current Problem List Problem List Problems Medical Problems: (1) Laceration Status: Acute Current Medications Current Medications Current Medications Ondansetron HCl (Zofran) 4 mg PRN Q8HRS PRN IV NAUSEA/VOMITING Last administered on 08/20/19at 22:27; Start 08/20/19 at 22:15; Stop 08/21/19 at 22:14 Morphine Sulfate (Morphine Sulfate) 4 mg PRN Q2HR PRN IV PAIN Last administered on 08/20/19at 22:26; Start 08/20/19 at 22:15; Stop 08/21/19 at 22:14 Sodium Chloride 1,000 ml @ 75 mls/hr [id number] IV Last administered on 08/21/19at 00:06; Start 08/20/19 at 22:15; Stop 08/21/19 at 22:14 Ceftriaxone Sodium (Rocephin) 1 gm 1X ONCE IVP Last administered on 08/20/19at 22:25; Start 08/20/19 at 22:15; Stop 08/20/19 at 22:16; Status DC Doxycycline Hyclate 100 mg/ Dextrose 100 ml @ 50 mls/hr 1X ONCE IV Last administered on 08/20/19at 22:28; Start 08/20/19 at 22:15; Stop 08/21/19 at 00:14; Status DC Active Scripts Active Reported Sertraline Hcl 25 Mg Tablet 25 Mg PO DAILY Vision Plus Lutein Vitamin Tab (Multivitamin W-Minerals/Lutein) 1 Each Tablet 1 Each PO BID Calcium 500 + D Tablet (Calcium Carbonate/Vitamin D3) 1 Each Tablet 1 Each PO DAILY Besivance (Besifloxacin Hcl) 5 Ml Drops.susp 1 Drop OS TID Hydrocodone-Apap 5-325 (Hydrocodone Bit/Acetaminophen) 1 Each Tablet 1 Tab PO PRN Q6HRS PRN Gabapentin (Gabapentin) 100 Mg Capsule 200 Mg PO TID Stool Softener (Docusate Sodium) 100 Mg Capsule 100 Mg PO Q48HR Centrum Silver Tablet (Multivits-Min/Fa/Lycopene/Lut) 1 Each Tablet 1 Each PO DAILY Omeprazole 20 Mg Tablet. 20 Mg PO DAILY Aspir 81 (Aspirin) 81 Mg Tablet.dr 81 Mg PO 1X Allergies Allergies: Coded Allergies: iodine (Verified Allergy, Intermediate, Swelling, 03/14/14) aspirin (Verified Allergy, Mild, stomach pain, 11/01/13) codeine (Verified Allergy, Mild, abdominal pain, 03/14/14) ROS General: YES: Fatigue, Malaise, Appetite; No: Chills, Night Sweats, Other PSYCHOLOGICAL ROS: YES: Anxiety, Depression; No: Behavioral Disorder, Concentration difficultie, Decreased libido, Disorientation, Hallucinations, Hostility, Irritablity, Memory difficulties, Mood Swings, Obsessive thoughts, Physical abuse, Sexual abuse, Sleep disturbances, Suicidal ideation, Other Eyes: No Blurry vision, No Decreased vision, No Double vision, No Dry eyes, No Excessive tearing, No Eye Pain, No Itchy Eyes, No Loss of vision, No Photophobia, No Scotomata, No Uses contacts, No Uses glasses, No Other HEENT: YES: Heacaches; No: Visual Changes, Hearing change, Nasal congestion, Nasal discharge, Oral lesions, Sinus pain, Sore Throat, Epistaxis, Sneezing, Snoring, Tinnitus, Vertigo, Vocal changes, Other ALLERGY AND IMMUNOLOGY: No: Hives, Insect Bite Sensitivity, Itchy/Watery Eyes, Nasal Congestion, Post Nasal Drip, Seasonal Allergies, Other Hematological and Lymphatic: No: Bleeding Problems, Blood Clots, Blood Transfusions, Brusing, Night Sweats, Pallor, Swollen Lymph Nodes, Other ENDOCRINE: No: Breast Changes, Galactorrhea, Hair Pattern Changes, Hot Flashes, Malaise/lethargy, Mood Swings, Palpitations, Polydipsia/polyuria, Skin Changes, Temperature Intolerance, Unexpected Weight Changes, Other Breast: No New/Changing Breast Lumps, No Nipple changes, No Nipple discharge, No Other Respiratory: No: Cough, Hemoptysis, Orthopnea, Pleuritic Pain, Shortness of breath, SOB with excertion, Sputum Changes, Stridor, Tachypnea, Wheezing, Other Cardiovascular: No Chest Pain, No Palpitations, No Orthopnea, No Paroxysmal Noc. Dyspnea, No Edema, No Lt Headedness, No Other Gastrointestinal: Yes Nausea; No Vomiting, No Abdominal Pain, No Diarrhea, No Constipation, No Melena, No Hematochezia, No Other Genitourinary: No Dysuria, No Frequency, No Incontinence, No Hematuria, No Retention, No Discharge, No Urgency, No Pain, No Flank Pain, No Other, No , No , No , No , No , No , No Musculoskeletal: Yes Gait Disturbance; No Joint Pain, No Joint Stiffness, No Joint Swelling, No Muscle Pain, No Muscular Weakness, No Pain In:, No Swelling In:, No Other Neurological: No Behavorial Changes, No Bowel/Bladder ControlChng, No Confusion, No Dizziness, No Gait Disturbance, No Headaches, No Impaired Coord/balance, No Memory Loss, No Numbness/Tingling, No Seizures, No Speech Problems, No Tremors, No Visual Changes, No Weakness, No Other Skin: No Dry Skin, No Eczema, No Hair Changes, No Lumps, No Mole Changes, No Mottling, No Nail Changes, No Pruritus, No Rash, No Skin Lesion Changes, No Other, No Acne Physical Exam General: Alert, Oriented X3, Cooperative, mild distress HEENT: PERRLA, EOMI, Mucous membr. moist/pink, Other (Left temporal hematoma) Lungs: Clear to auscultation, Normal air movement Heart: S1S2, RRR, no gallops, no murmurs Abdomen: Normal bowel sounds, Soft, No tenderness, No hepatosplenomegaly, No masses Rectal Exam: not examined Extremities: No clubbing, No cyanosis, No edema, Normal pulses, No tenderness/swelling Skin: No rashes, No breakdown, No significant lesion Neuro: Normal gait, Normal speech, Strength at 5/5 X4 ext, Normal tone, Sensation intact, Cranial nerves 3-12 NL, Reflexes 2+ Psych/Mental Status: Mental status NL, Mood NL Vitals Vitals Vital Signs Date Time Temp Pulse Resp B/P (MAP) Pulse Ox O2 Delivery O2 Flow Rate FiO2 08/21/19 07:00 98.0 92 16 130/58 (82) 92 Room Air 98.0 Labs Labs Laboratory Tests Test 08/20/19 19:50 08/20/19 20:35 White Blood Count 11.4 x10^3/uL (4.0-11.0) Red Blood Count 4.39 x10^6/uL (3.50-5.40) Hemoglobin 13.6 g/dL (12.0-15.5) Hematocrit 41.0 % (36.0-47.0) Mean Corpuscular Volume 93 fL (79-100) Mean Corpuscular Hemoglobin 31 pg (25-35) Mean Corpuscular Hemoglobin Concent 33 g/dL (31-37) Red Cell Distribution Width 13.2 % (11.5-14.5) Platelet Count 270 x10^3/uL (140-400) Neutrophils (%) (Auto) 86 % (31-73) Lymphocytes (%) (Auto) 9 % (24-48) Monocytes (%) (Auto) 5 % (0-9) Eosinophils (%) (Auto) 0 % (0-3) Basophils (%) (Auto) 0 % (0-3) Neutrophils # (Auto) 9.8 x10^3/uL (1.8-7.7) Lymphocytes # (Auto) 1.1 x10^3/uL (1.0-4.8) Monocytes # (Auto) 0.5 x10^3/uL (0.0-1.1) Eosinophils # (Auto) 0.0 x10^3/uL (0.0-0.7) Basophils # (Auto) 0.1 x10^3/uL (0.0-0.2) Segmented Neutrophils % 82 % (35-66) Band Neutrophils % 1 % (0-9) Lymphocytes % 13 % (24-48) Monocytes % 4 % (0-10) Platelet Estimate Adequate (ADEQUATE) Prothrombin Time 12.8 SEC (11.7-14.0) Prothromb Time International Ratio 1.0 (0.8-1.1) Sodium Level 141 mmol/L (136-145) Potassium Level 4.2 mmol/L (3.5-5.1) Chloride Level 102 mmol/L (98-107) Carbon Dioxide Level 31 mmol/L (21-32) Anion Gap 8 (6-14) Blood Urea Nitrogen 13 mg/dL (7-20) Creatinine 0.7 mg/dL (0.6-1.0) Estimated GFR (Cockcroft-Gault) 80.1 BUN/Creatinine Ratio 19 (6-20) Glucose Level 112 mg/dL (70-99) Calcium Level 10.3 mg/dL (8.5-10.1) Total Bilirubin 0.3 mg/dL (0.2-1.0) Aspartate Amino Transf (AST/SGOT) 16 U/L (15-37) Alanine Aminotransferase (ALT/SGPT) 13 U/L (14-59) Alkaline Phosphatase 122 U/L (46-116) Troponin I Quantitative < 0.017 ng/mL (0.000-0.055) Total Protein 8.1 g/dL (6.4-8.2) Albumin 3.5 g/dL (3.4-5.0) Albumin/Globulin Ratio 0.8 (1.0-1.7) Urine Collection Type Unknown Urine Color Yellow Urine Clarity Clear Urine pH 6.0 Urine Specific [place] 1.015 Urine Protein Negative mg/dL (NEG-TRACE) Urine Glucose (UA) Negative mg/dL (NEG) Urine Ketones (Stick) Trace mg/dL (NEG) Urine Blood Negative (NEG) Urine Nitrite Negative (NEG) Urine Bilirubin Negative (NEG) Urine Urobilinogen Dipstick 0.2 mg/dL (0.2 mg/dL) Urine Leukocyte Esterase Moderate (NEG) Urine RBC 0 /HPF (0-2) Urine WBC 11-20 /HPF (0-4) Urine Squamous Epithelial Cells Few /LPF Urine Bacteria Many /HPF (0-FEW) Urine Hyaline Casts Few /HPF Urine Mucus Mod /LPF Laboratory Tests Test 08/20/19 19:50 08/20/19 20:35 White Blood Count 11.4 x10^3/uL (4.0-11.0) Red Blood Count 4.39 x10^6/uL (3.50-5.40) Hemoglobin 13.6 g/dL (12.0-15.5) Hematocrit 41.0 % (36.0-47.0) Mean Corpuscular Volume 93 fL (79-100) Mean Corpuscular Hemoglobin 31 pg (25-35) Mean Corpuscular Hemoglobin Concent 33 g/dL (31-37) Red Cell Distribution Width 13.2 % (11.5-14.5) Platelet Count 270 x10^3/uL (140-400) Neutrophils (%) (Auto) 86 % (31-73) Lymphocytes (%) (Auto) 9 % (24-48) Monocytes (%) (Auto) 5 % (0-9) Eosinophils (%) (Auto) 0 % (0-3) Basophils (%) (Auto) 0 % (0-3) Neutrophils # (Auto) 9.8 x10^3/uL (1.8-7.7) Lymphocytes # (Auto) 1.1 x10^3/uL (1.0-4.8) Monocytes # (Auto) 0.5 x10^3/uL (0.0-1.1) Eosinophils # (Auto) 0.0 x10^3/uL (0.0-0.7) Basophils # (Auto) 0.1 x10^3/uL (0.0-0.2) Segmented Neutrophils % 82 % (35-66) Band Neutrophils % 1 % (0-9) Lymphocytes % 13 % (24-48) Monocytes % 4 % (0-10) Platelet Estimate Adequate (ADEQUATE) Prothrombin Time 12.8 SEC (11.7-14.0) Prothromb Time International Ratio 1.0 (0.8-1.1) Sodium Level 141 mmol/L (136-145) Potassium Level 4.2 mmol/L (3.5-5.1) Chloride Level 102 mmol/L (98-107) Carbon Dioxide Level 31 mmol/L (21-32) Anion Gap 8 (6-14) Blood Urea Nitrogen 13 mg/dL (7-20) Creatinine 0.7 mg/dL (0.6-1.0) Estimated GFR (Cockcroft-Gault) 80.1 BUN/Creatinine Ratio 19 (6-20) Glucose Level 112 mg/dL (70-99) Calcium Level 10.3 mg/dL (8.5-10.1) Total Bilirubin 0.3 mg/dL (0.2-1.0) Aspartate Amino Transf (AST/SGOT) 16 U/L (15-37) Alanine Aminotransferase (ALT/SGPT) 13 U/L (14-59) Alkaline Phosphatase 122 U/L (46-116) Troponin I Quantitative < 0.017 ng/mL (0.000-0.055) Total Protein 8.1 g/dL (6.4-8.2) Albumin 3.5 g/dL (3.4-5.0) Albumin/Globulin Ratio 0.8 (1.0-1.7) Urine Collection Type Unknown Urine Color Yellow Urine Clarity Clear Urine pH 6.0 Urine Specific [place] 1.015 Urine Protein Negative mg/dL (NEG-TRACE) Urine Glucose (UA) Negative mg/dL (NEG) Urine Ketones (Stick) Trace mg/dL (NEG) Urine Blood Negative (NEG) Urine Nitrite Negative (NEG) Urine Bilirubin Negative (NEG) Urine Urobilinogen Dipstick 0.2 mg/dL (0.2 mg/dL) Urine Leukocyte Esterase Moderate (NEG) Urine RBC 0 /HPF (0-2) Urine WBC 11-20 /HPF (0-4) Urine Squamous Epithelial Cells Few /LPF Urine Bacteria Many /HPF (0-FEW) Urine Hyaline Casts Few /HPF Urine Mucus Mod /LPF Images Images CT head - Acute subarachnoid hemorrhage is seen surrounding both cerebral hemispheres, particularly in the left frontal region. No additional acute intracranial abnormality is seen. CT C-spine - No fracture or subluxation of the cervical vertebra is identified. CXR - 4.5 cm masslike opacity is seen involving the right upper lobe which has increased in size since the previous examination. This is concerning for a neoplastic process such as bronchogenic carcinoma. 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 She is still deliberating. ELDER HALL MD Aug 21, 2019 09:11
--- NOTE | 2019-08-21 10:55 | PDOC2 ---
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 Reviewed [facility] system and no records since then. She lives alone in own mobile home. In June 2018 she had abnormal chest imaging which included CT and PET scan which showed several RUL nodules which were pet avid suggestive of malignancy. She made the decision at that time not to pursue evaluation and it does not sound like she has seen her PCP Dr Del Real since that time. Currently in because of a fall. She was in her kitchen and fell, but not sure why/how. Her neighbor who looks in on her had gone to store for her and when he returned, she was sitting in a chair but had facial injuries and was blood on floor. In ER CT did show some subarachnoid hemorrhage - I suspect traumatic - but she made her wishes clear she did not want aggressive therapy. She also had CXR which showed what appeared to be progression of the disease in her RUL. She does not offer a lot of pulmonary symptoms. Has lost about 25 p ounds of weight in last year. Not currently having pain, but has had some visits with pain clinic about lumbar radiculopathy which I think is likely unrelated. Past Medical History Cardiovascular: Other (outside records indicated angioplasty and stent) CENTRAL NERVOUS SYSTEM: TIA GI: GERD Musculoskeletal: Osteoarthritis Past Surgical History Past Surgical History: Appendectomy, Cholecystectomy, Hysterectomy Family History Family History Not aware of cancers in family Social History Social History She still smokes, but denies etoh and drugs. She has no living family - her son about 2 years ago. She has a neighbor who did come in while I was visiting who looks after her. Current Problem List Problem List Problems Medical Problems: (1) Laceration Status: Acute Current Medications Current Medications Current Medications Ondansetron HCl (Zofran) 4 mg PRN Q8HRS PRN IV NAUSEA/VOMITING Last administered on 08/20/19at 22:27; Start 08/20/19 at 22:15; Stop 08/21/19 at 22:14 Morphine Sulfate (Morphine Sulfate) 4 mg PRN Q2HR PRN IV PAIN Last administered on 08/20/19at 22:26; Start 08/20/19 at 22:15; Stop 08/21/19 at 22:14 Sodium Chloride 1,000 ml @ 75 mls/hr [id number] IV Last administered on 08/21/19at 00:06; Start 08/20/19 at 22:15; Stop 08/21/19 at 22:14 Ceftriaxone Sodium (Rocephin) 1 gm 1X ONCE IVP Last administered on 08/20/19at 22:25; Start 08/20/19 at 22:15; Stop 08/20/19 at 22:16; Status DC Doxycycline Hyclate 100 mg/ Dextrose 100 ml @ 50 mls/hr 1X ONCE IV Last administered on 08/20/19at 22:28; Start 08/20/19 at 22:15; Stop 08/21/19 at 00:14; Status DC Active Scripts Active Reported Sertraline Hcl 25 Mg Tablet 25 Mg PO DAILY Vision Plus Lutein Vitamin Tab (Multivitamin W-Minerals/Lutein) 1 Each Tablet 1 Each PO BID Calcium 500 + D Tablet (Calcium Carbonate/Vitamin D3) 1 Each Tablet 1 Each PO DAILY Besivance (Besifloxacin Hcl) 5 Ml Drops.susp 1 Drop OS TID Hydrocodone-Apap 5-325 (Hydrocodone Bit/Acetaminophen) 1 Each Tablet 1 Tab PO PRN Q6HRS PRN Gabapentin (Gabapentin) 100 Mg Capsule 200 Mg PO TID Stool Softener (Docusate Sodium) 100 Mg Capsule 100 Mg PO Q48HR Centrum Silver Tablet (Multivits-Min/Fa/Lycopene/Lut) 1 Each Tablet 1 Each PO DAILY Omeprazole 20 Mg Tablet. 20 Mg PO DAILY Aspir 81 (Aspirin) 81 Mg Tablet.dr 81 Mg PO 1X Allergies Allergies: Coded Allergies: iodine (Verified Allergy, Intermediate, Swelling, 03/14/14) aspirin (Verified Allergy, Mild, stomach pain, 11/01/13) codeine (Verified Allergy, Mild, abdominal pain, 03/14/14) ROS Review of System as noted in HPI - otherwise denies many symptoms Physical Exam General: Alert, Oriented X3, Cooperative, No acute distress, Other (thin, does have bruising around left eye and some abrasion on forehead, but is clear mentally) HEENT: PERRLA, Mucous membr. moist/pink, Other (poor dentition) Lungs: Other (some rhonchi, but fair air movement) Heart: Regular rate Abdomen: Normal bowel sounds, No tenderness, No hepatosplenomegaly Extremities: No clubbing, No edema, Other (minimal muscle mass in extremities) Neuro: Other (she is hoarse, but understandable, no other focal neuro changes) Psych/Mental Status: Mood NL MUSCULOSKELETAL: No swelling Vitals VITALS Vital Signs Date Time Temp Pulse Resp B/P (MAP) Pulse Ox O2 Delivery O2 Flow Rate FiO2 08/21/19 07:00 98.0 92 16 130/58 (82) 92 Room Air 98.0 Labs Labs Laboratory Tests Test 08/20/19 19:50 08/20/19 20:35 White Blood Count 11.4 x10^3/uL (4.0-11.0) Red Blood Count 4.39 x10^6/uL (3.50-5.40) Hemoglobin 13.6 g/dL (12.0-15.5) Hematocrit 41.0 % (36.0-47.0) Mean Corpuscular Volume 93 fL (79-100) Mean Corpuscular Hemoglobin 31 pg (25-35) Mean Corpuscular Hemoglobin Concent 33 g/dL (31-37) Red Cell Distribution Width 13.2 % (11.5-14.5) Platelet Count 270 x10^3/uL (140-400) Neutrophils (%) (Auto) 86 % (31-73) Lymphocytes (%) (Auto) 9 % (24-48) Monocytes (%) (Auto) 5 % (0-9) Eosinophils (%) (Auto) 0 % (0-3) Basophils (%) (Auto) 0 % (0-3) Neutrophils # (Auto) 9.8 x10^3/uL (1.8-7.7) Lymphocytes # (Auto) 1.1 x10^3/uL (1.0-4.8) Monocytes # (Auto) 0.5 x10^3/uL (0.0-1.1) Eosinophils # (Auto) 0.0 x10^3/uL (0.0-0.7) Basophils # (Auto) 0.1 x10^3/uL (0.0-0.2) Segmented Neutrophils % 82 % (35-66) Band Neutrophils % 1 % (0-9) Lymphocytes % 13 % (24-48) Monocytes % 4 % (0-10) Platelet Estimate Adequate (ADEQUATE) Prothrombin Time 12.8 SEC (11.7-14.0) Prothromb Time International Ratio 1.0 (0.8-1.1) Sodium Level 141 mmol/L (136-145) Potassium Level 4.2 mmol/L (3.5-5.1) Chloride Level 102 mmol/L (98-107) Carbon Dioxide Level 31 mmol/L (21-32) Anion Gap 8 (6-14) Blood Urea Nitrogen 13 mg/dL (7-20) Creatinine 0.7 mg/dL (0.6-1.0) Estimated GFR (Cockcroft-Gault) 80.1 BUN/Creatinine Ratio 19 (6-20) Glucose Level 112 mg/dL (70-99) Calcium Level 10.3 mg/dL (8.5-10.1) Total Bilirubin 0.3 mg/dL (0.2-1.0) Aspartate Amino Transf (AST/SGOT) 16 U/L (15-37) Alanine Aminotransferase (ALT/SGPT) 13 U/L (14-59) Alkaline Phosphatase 122 U/L (46-116) Troponin I Quantitative < 0.017 ng/mL (0.000-0.055) Total Protein 8.1 g/dL (6.4-8.2) Albumin 3.5 g/dL (3.4-5.0) Albumin/Globulin Ratio 0.8 (1.0-1.7) Urine Collection Type Unknown Urine Color Yellow Urine Clarity Clear Urine pH 6.0 Urine Specific [place] 1.015 Urine Protein Negative mg/dL (NEG-TRACE) Urine Glucose (UA) Negative mg/dL (NEG) Urine Ketones (Stick) Trace mg/dL (NEG) Urine Blood Negative (NEG) Urine Nitrite Negative (NEG) Urine Bilirubin Negative (NEG) Urine Urobilinogen Dipstick 0.2 mg/dL (0.2 mg/dL) Urine Leukocyte Esterase Moderate (NEG) Urine RBC 0 /HPF (0-2) Urine WBC 11-20 /HPF (0-4) Urine Squamous Epithelial Cells Few /LPF Urine Bacteria Many /HPF (0-FEW) Urine Hyaline Casts Few /HPF Urine Mucus Mod /LPF Laboratory Tests Test 08/20/19 19:50 08/20/19 20:35 White Blood Count 11.4 x10^3/uL (4.0-11.0) Red Blood Count 4.39 x10^6/uL (3.50-5.40) Hemoglobin 13.6 g/dL (12.0-15.5) Hematocrit 41.0 % (36.0-47.0) Mean Corpuscular Volume 93 fL (79-100) Mean Corpuscular Hemoglobin 31 pg (25-35) Mean Corpuscular Hemoglobin Concent 33 g/dL (31-37) Red Cell Distribution Width 13.2 % (11.5-14.5) Platelet Count 270 x10^3/uL (140-400) Neutrophils (%) (Auto) 86 % (31-73) Lymphocytes (%) (Auto) 9 % (24-48) Monocytes (%) (Auto) 5 % (0-9) Eosinophils (%) (Auto) 0 % (0-3) Basophils (%) (Auto) 0 % (0-3) Neutrophils # (Auto) 9.8 x10^3/uL (1.8-7.7) Lymphocytes # (Auto) 1.1 x10^3/uL (1.0-4.8) Monocytes # (Auto) 0.5 x10^3/uL (0.0-1.1) Eosinophils # (Auto) 0.0 x10^3/uL (0.0-0.7) Basophils # (Auto) 0.1 x10^3/uL (0.0-0.2) Segmented Neutrophils % 82 % (35-66) Band Neutrophils % 1 % (0-9) Lymphocytes % 13 % (24-48) Monocytes % 4 % (0-10) Platelet Estimate Adequate (ADEQUATE) Prothrombin Time 12.8 SEC (11.7-14.0) Prothromb Time International Ratio 1.0 (0.8-1.1) Sodium Level 141 mmol/L (136-145) Potassium Level 4.2 mmol/L (3.5-5.1) Chloride Level 102 mmol/L (98-107) Carbon Dioxide Level 31 mmol/L (21-32) Anion Gap 8 (6-14) Blood Urea Nitrogen 13 mg/dL (7-20) Creatinine 0.7 mg/dL (0.6-1.0) Estimated GFR (Cockcroft-Gault) 80.1 BUN/Creatinine Ratio 19 (6-20) Glucose Level 112 mg/dL (70-99) Calcium Level 10.3 mg/dL (8.5-10.1) Total Bilirubin 0.3 mg/dL (0.2-1.0) Aspartate Amino Transf (AST/SGOT) 16 U/L (15-37) Alanine Aminotransferase (ALT/SGPT) 13 U/L (14-59) Alkaline Phosphatase 122 U/L (46-116) Troponin I Quantitative < 0.017 ng/mL (0.000-0.055) Total Protein 8.1 g/dL (6.4-8.2) Albumin 3.5 g/dL (3.4-5.0) Albumin/Globulin Ratio 0.8 (1.0-1.7) Urine Collection Type Unknown Urine Color Yellow Urine Clarity Clear Urine pH 6.0 Urine Specific [place] 1.015 Urine Protein Negative mg/dL (NEG-TRACE) Urine Glucose (UA) Negative mg/dL (NEG) Urine Ketones (Stick) Trace mg/dL (NEG) Urine Blood Negative (NEG) Urine Nitrite Negative (NEG) Urine Bilirubin Negative (NEG) Urine Urobilinogen Dipstick 0.2 mg/dL (0.2 mg/dL) Urine Leukocyte Esterase Moderate (NEG) Urine RBC 0 /HPF (0-2) Urine WBC 11-20 /HPF (0-4) Urine Squamous Epithelial Cells Few /LPF Urine Bacteria Many /HPF (0-FEW) Urine Hyaline Casts Few /HPF Urine Mucus Mod /LPF Assessment/Plan Assessment/Plan 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 Now with RUL process which has been known over a year and not progressive. She decided last year that she did not want any evaluation or therapy and her wishes remain the same at present. I did tell her to phone counselor further about options which would likely be chemo and or immunotherapy in most circumstances, she would have to have a biopsy, but I suspect goals of therapy would be palliative and I respect her wishes not to pursue other evaluation. She strikes me as being clear and able to make her own decisions. Her goals are to go home. I recommend involving sr. social media & mobile manager to figure options and we did discuss hospice care and I think she would be amenable to that. Nothing else to offer from onc standpoint, so will sign off and please call if other onc questions. She can be followed by hospice electromedical service engineer or pcp going forward. MARIANNA JOHNSON MD Aug 21, 2019 10:55
[2019-08-21 11:00] VITALS: BP 137/67
--- NOTE | 2019-08-21 11:24 | EKG ---
[facility] [address] [place] [address] Test Date: 2019-08-20 Test Time: 19:09:25 Pat Name: MACKENZIE BENDER Department: Room: 412 1 Gender: F Branch Store Manager: : [id number] Requested By: RADU GUEVARA Order Number: [id number] Reading MD: Charly Hollingsworth MD Measurements Intervals [place] Rate: 99 P: 71 WA: 154 QRS: 26 QRSD: 72 T: 67 QT: 324 QTc: 421 Interpretive Statements SINUS RHYTHM Electronically Signed On 08-30-2019 9:47:42 CDT by Charly Hollingsworth MD
[2019-08-21] MEDS: DOCUSATE SODIUM 100 MG CAPSULE. PO SCH ×2 (13:00→21:00)
[2019-08-21] MEDS: CALCIUM CARB/VIT D3 500/200 TABLET. PO SCH (14:00)
[2019-08-21] MEDS: MULTIVITAMIN I-VITE TABLET. PO SCH (14:00)
[2019-08-21] MEDS: PANTOPRAZOLE 40 MG TABLET.DR. PO SCH (14:00)
[2019-08-21] MEDS ORDERED: BESIFLOXACIN HCL OS SCH (14:00)
[2019-08-21] MEDS: SERTRALINE 25 MG TABLET. PO SCH (14:00)
[2019-08-21] MEDS: MULTIVITAMIN with MINERAL TABLET. PO SCH (14:00)
[2019-08-21 15:00] VITALS: BP 168/70
[2019-08-21] MEDS: GABAPENTIN 100 MG CAPSULE. PO SCH ×2 (15:36→22:03)
[2019-08-21] MEDS: HYDROcodone/APAP 5/325MG 1 TAB TABLET PO PRN (15:46)
[2019-08-21 19:00] VITALS: BP 135/60
[2019-08-21] MEDS ORDERED: cefTRIAXone IV Push 1 GM VIAL. IVP SCH (21:00)
[2019-08-21 23:00] VITALS: BP 119/98
[2019-08-22 03:00] VITALS: BP 141/66
[2019-08-22 07:00] VITALS: BP 166/84
[2019-08-22] MEDS ORDERED: MORPHINE SULFATE 20 MG/ML CONC SOLUTION. SL PRN (08:45)
[2019-08-22] MEDS ORDERED: LORazepam INTENSOL 2 MG/ML ORAL.CONC SL PRN (08:45)
[2019-08-22] MEDS ORDERED: CIPR500T94 PO (08:46)
[2019-08-22] MEDS: MULTIVITAMIN I-VITE TABLET. PO SCH (08:51)
[2019-08-22] MEDS: CALCIUM CARB/VIT D3 500/200 TABLET. PO SCH (08:51)
[2019-08-22] MEDS: MULTIVITAMIN with MINERAL TABLET. PO SCH (08:51)
[2019-08-22] MEDS: GABAPENTIN 100 MG CAPSULE. PO SCH ×3 (08:52→20:41)
[2019-08-22] MEDS: SERTRALINE 25 MG TABLET. PO SCH (08:52)
[2019-08-22] MEDS: DOCUSATE SODIUM 100 MG CAPSULE. PO SCH ×2 (08:52→20:40)
[2019-08-22] MEDS: PANTOPRAZOLE 40 MG TABLET.DR. PO SCH (08:52)
[2019-08-22] MEDS: HYDROcodone/APAP 5/325MG 1 TAB TABLET PO PRN (08:53)
--- NOTE | 2019-08-22 10:58 | PDOC ---
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 SHe could not give a commitment to hospice or at elast was uncomfortable giving that to me I signed the outside DNR Palliative also on board CA high 10 She is cachectic, BMI 17 with minimal subcutaneous tissue CXR: 4.5 cm masslike opacity is seen involving the right upper lobe which has increased in size since the previous examination. SHe jay shave smoking hx (cont to?) She LOST 10-15 lbs PLAN: Sijnce she wishes to pursue investigation, CT chest IV contrastm pulmo consult NS 100cc for the hypercalcemia, may check iPTH She seems amenable to rehab or snu which she will most likely need SW.PT oT consult NUtrition consult Further recs pending course DNR Vitals Vitals Vital Signs Date Time Temp Pulse Resp B/P (MAP) Pulse Ox O2 Delivery O2 Flow Rate FiO2 08/22/19 09:55 Room Air 08/22/19 07:00 98.4 121 16 166/84 (111) 94 98.4 Physical Exam General: Alert, Oriented X3, Cooperative, mild distress Heart: Regular rate Abdomen: Normal bowel sounds, Soft, No tenderness, No hepatosplenomegaly, No masses Extremities: No clubbing, No cyanosis, No edema, Normal pulses, No tenderness/swelling Skin: No rashes, No breakdown, No significant lesion Review of Systems Review of Systems poor PO< weight loss 10-15 lbs, all else neg Assessment and Plan Assessmemt and Plan Problems Medical Problems: (1) Laceration Status: Acute Comment Review of Relevant I have reviewed the following items [place] (where applicable) has been applied. Labs Laboratory Tests Test 08/20/19 19:50 08/20/19 20:35 White Blood Count 11.4 x10^3/uL (4.0-11.0) Red Blood Count 4.39 x10^6/uL (3.50-5.40) Hemoglobin 13.6 g/dL (12.0-15.5) Hematocrit 41.0 % (36.0-47.0) Mean Corpuscular Volume 93 fL (79-100) Mean Corpuscular Hemoglobin 31 pg (25-35) Mean Corpuscular Hemoglobin Concent 33 g/dL (31-37) Red Cell Distribution Width 13.2 % (11.5-14.5) Platelet Count 270 x10^3/uL (140-400) Neutrophils (%) (Auto) 86 % (31-73) Lymphocytes (%) (Auto) 9 % (24-48) Monocytes (%) (Auto) 5 % (0-9) Eosinophils (%) (Auto) 0 % (0-3) Basophils (%) (Auto) 0 % (0-3) Neutrophils # (Auto) 9.8 x10^3/uL (1.8-7.7) Lymphocytes # (Auto) 1.1 x10^3/uL (1.0-4.8) Monocytes # (Auto) 0.5 x10^3/uL (0.0-1.1) Eosinophils # (Auto) 0.0 x10^3/uL (0.0-0.7) Basophils # (Auto) 0.1 x10^3/uL (0.0-0.2) Segmented Neutrophils % 82 % (35-66) Band Neutrophils % 1 % (0-9) Lymphocytes % 13 % (24-48) Monocytes % 4 % (0-10) Platelet Estimate Adequate (ADEQUATE) Prothrombin Time 12.8 SEC (11.7-14.0) Prothromb Time International Ratio 1.0 (0.8-1.1) Sodium Level 141 mmol/L (136-145) Potassium Level 4.2 mmol/L (3.5-5.1) Chloride Level 102 mmol/L (98-107) Carbon Dioxide Level 31 mmol/L (21-32) Anion Gap 8 (6-14) Blood Urea Nitrogen 13 mg/dL (7-20) Creatinine 0.7 mg/dL (0.6-1.0) Estimated GFR (Cockcroft-Gault) 80.1 BUN/Creatinine Ratio 19 (6-20) Glucose Level 112 mg/dL (70-99) Calcium Level 10.3 mg/dL (8.5-10.1) Total Bilirubin 0.3 mg/dL (0.2-1.0) Aspartate Amino Transf (AST/SGOT) 16 U/L (15-37) Alanine Aminotransferase (ALT/SGPT) 13 U/L (14-59) Alkaline Phosphatase 122 U/L (46-116) Troponin I Quantitative < 0.017 ng/mL (0.000-0.055) Total Protein 8.1 g/dL (6.4-8.2) Albumin 3.5 g/dL (3.4-5.0) Albumin/Globulin Ratio 0.8 (1.0-1.7) Urine Collection Type Unknown Urine Color Yellow Urine Clarity Clear Urine pH 6.0 Urine Specific [place] 1.015 Urine Protein Negative mg/dL (NEG-TRACE) Urine Glucose (UA) Negative mg/dL (NEG) Urine Ketones (Stick) Trace mg/dL (NEG) Urine Blood Negative (NEG) Urine Nitrite Negative (NEG) Urine Bilirubin Negative (NEG) Urine Urobilinogen Dipstick 0.2 mg/dL (0.2 mg/dL) Urine Leukocyte Esterase Moderate (NEG) Urine RBC 0 /HPF (0-2) Urine WBC 11-20 /HPF (0-4) Urine Squamous Epithelial Cells Few /LPF Urine Bacteria Many /HPF (0-FEW) Urine Hyaline Casts Few /HPF Urine Mucus Mod /LPF Medications Current Medications Ondansetron HCl (Zofran) 4 mg PRN Q8HRS PRN IV NAUSEA/VOMITING Last administered on 08/20/19at 22:27; Start 08/20/19 at 22:15; Stop 08/21/19 at 22:14; Status DC Morphine Sulfate (Morphine Sulfate) 4 mg PRN Q2HR PRN IV PAIN Last administered on 08/20/19at 22:26; Start 08/20/19 at 22:15; Stop 08/21/19 at 22:14; Status DC Sodium Chloride 1,000 ml @ 75 mls/hr [id number] IV Last administered on 08/21/19at 00:06; Start 08/20/19 at 22:15; Stop 08/21/19 at 22:14; Status DC Ceftriaxone Sodium (Rocephin) 1 gm 1X ONCE IVP Last administered on 08/20/19at 22:25; Start 08/20/19 at 22:15; Stop 08/20/19 at 22:16; Status DC Doxycycline Hyclate 100 mg/ Dextrose 100 ml @ 50 mls/hr 1X ONCE IV Last administered on 08/20/19 22:28; Start 08/20/19 at 22:15; Stop 08/21/19 at 00:14; Status DC Docusate Sodium (Colace) 100 mg BID PO ; Start 08/21/19 at 13:00 Gabapentin (Neurontin) 200 mg TID PO Last administered on 08/22/19 08:52; Start 08/21/19 at 14:00 Acetaminophen/ Hydrocodone Bitart (Lortab 5/325) 1 tab PRN Q6HRS PRN PO PAIN Last administered on 08/22/19 08:53; Start 08/21/19 at 13:15 Sertraline HCl (Zoloft) 25 mg DAILY PO Last administered on 08/22/19 08:52; Start 08/21/19 at 14:00 Non-Formulary Medication (Besifloxacin Hcl (Besivance)) 1 drop TID OS ; Start 08/21/19 at 14:00; Status UNV Calcium/Vitamin D (Oscal D 500mg/ 200uts) 1 tab DAILY PO Last administered on 08/22/19 08:51; Start 08/21/19 at 14:00 Multivitamins/ Minerals (I-Peng) 1 tab DAILY PO Last administered on 08/22/19 08:51; Start 08/21/19 at 14:00 Multivitamins (Thera M Plus) 1 tab DAILY PO Last administered on 08/22/19 08:51; Start 08/21/19 at 14:00 Pantoprazole Sodium (Protonix) 40 mg DAILYAC PO Last administered on 08/22/19 08:52; Start 08/21/19 at 14:00 Ceftriaxone Sodium (Rocephin) 1 gm Q24H IVP Last administered on 08/21/19 22:04; Start 08/21/19 at 21:00; Stop 08/22/19 at 08:45; Status DC Morphine Sulfate (Roxanol Conc) 20 mg PRN Q3HRS PRN SL PAIN; Start 08/22/19 at 08:45 Lorazepam (Ativan Intensol) 2 mg PRN Q6HRS PRN SL ANXIETY / AGITATION; Start 08/22/19 at 08:45 Active Scripts Active Cipro (Ciprofloxacin Hcl) 500 Mg Tablet 1 Tab PO BID Reported Sertraline Hcl 25 Mg Tablet 25 Mg PO DAILY Vision Plus Lutein Vitamin Tab (Multivitamin W-Minerals/Lutein) 1 Each Tablet 1 Each PO BID Calcium 500 + D Tablet (Calcium Carbonate/Vitamin D3) 1 Each Tablet 1 Each PO DAILY Besivance (Besifloxacin Hcl) 5 Ml Drops.susp 1 Drop OS TID Hydrocodone-Apap 5-325 (Hydrocodone Bit/Acetaminophen) 1 Each Tablet 1 Tab PO PRN Q6HRS PRN Gabapentin (Gabapentin) 100 Mg Capsule 200 Mg PO TID Stool Softener (Docusate Sodium) 100 Mg Capsule 100 Mg PO Q48HR Centrum Silver Tablet (Multivits-Min/Fa/Lycopene/Lut) 1 Each Tablet 1 Each PO DAILY Omeprazole 20 Mg Tablet.dr 20 Mg PO DAILY Vitals/I & O Vital Sign - Last 24 Hours 08/21/19 08/21/19 08/21/19 08/21/19 11:00 15:00 15:46 16:54 Temp 98.8 98.3 98.8 98.3 Pulse 93 89 Resp 18 18 B/P (MAP) 137/67 (90) 168/70 (102) Pulse Ox 90 94 O2 Delivery Room Air Room Air Room Air Room Air 08/21/19 08/21/19 08/21/19 08/22/19 19:00 20:15 23:00 03:00 Temp 98.2 99.0 98.8 98.2 99.0 98.8 Pulse 69 85 98 Resp 18 18 18 B/P (MAP) 135/60 (85) 119/98 (105) 141/66 (91) Pulse Ox 92 92 93 O2 Delivery Room Air Room Air Room Air Room Air 08/22/19 08/22/19 08/22/19 08/22/19 07:00 08:00 08:53 09:55 Temp 98.4 98.4 Pulse 121 Resp 16 B/P (MAP) 166/84 (111) Pulse Ox 94 O2 Delivery Room Air Room Air Room Air Room Air Intake and Output 08/21/19 08/21/19 08/22/19 14:59 22:59 06:59 Intake Total 180 ml 90 ml Balance 180 ml 90 ml JEFF ECHAVARRIA MD Aug 22, 2019 10:57
[2019-08-22 11:00] VITALS: BP 116/61
[2019-08-22] MEDS ORDERED: IV NORMAL SALINE 1000ML BAG 1,000 ML IV SCH (11:00)
[2019-08-22] MEDS ORDERED: IOHEXOL 300 MG/ML 100ML VIAL. IV ONE (11:30)
[2019-08-22] MEDS ORDERED: CONTRAST GIVEN. MC PRN (11:30)
[2019-08-22] MEDS ORDERED: diphenhydrAMINE 50 MG/ML VIAL IVP ONE (11:30)
[2019-08-22] MEDS ORDERED: methylPREDNISolone SOD SUCC PF 40 MG/ML VIAL. IV ONE (11:30)
--- NOTE | 2019-08-22 11:49 | NUR ---
SS following for discharge planning. Pt is from home alone and currently lives in mobile home. Palliative Care Consulted for possible hospice. SS will follow up with palliative care and will continue to follow for discharge planning.
--- NOTE | 2019-08-22 12:18 | CONS ---
DATE OF CONSULTATION: ATTENDING PHYSICIAN: Dr. Terrell. REASON FOR CONSULTATION: Lung masses. 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 She was treated with laser treatment. We do not have the details of that treatment available. In 06/2018, she had an abnormal CT chest with multiple lung masses. PET scan showed all masses were hypermetabolic. They were predominantly in the right upper lobe. At that time, there was decision made not to pursue further evaluation. She came into the hospital after a fall. She fell in her kitchen. She had a CT of the head done in the ER, which showed no fracture. There was acute subarachnoid hemorrhage seen surrounding both cerebral hemispheres. I have been asked to see her for further evaluation of her abnormal chest x-ray, which showed significantly increased size of the right upper lobe mass. She just had a CT chest done, which has not been read yet, but I have reviewed the CT chest, she has multiple lung masses and one of them is significantly larger than the right upper lobe close to the pleura. She has been losing weight. She has chronic hoarseness. When I asked her about any further chemotherapy in case if biopsies is perceived, she says she does not want to go any further chemotherapy. PAST MEDICAL HISTORY: Significant for left vocal cord squamous cell carcinoma diagnosed in 2008, treated with laser, details of which are not available. History of suspected COPD. PAST SURGICAL HISTORY: Appendectomy, cholecystectomy and hysterectomy. FAMILY HISTORY: Noncontributory to lungs. SOCIAL HISTORY: A 30 years of tobacco use. MEDICATIONS: Reviewed as listed in the MRAD. REVIEW OF SYSTEMS: Twelve-point system obtained. Pertinent positives discussed in my history of present illness, otherwise noncontributory. All systems that were negative were reviewed as well. PHYSICAL EXAMINATION: VITAL SIGNS: Reviewed, pulse ox 94% on room air. NECK: Supple. LUNGS: Clear with diminished breath sounds posteriorly. CARDIOVASCULAR: Regular rate. ABDOMEN: Soft. EXTREMITIES: With no pitting edema. LABORATORY DATA: Reviewed. White cell count 11.4, hemoglobin 13.6 and platelets are 270. BUN and creatinine normal. IMPRESSION: 1. 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 In 06/2018, she had an abnormal CT chest with multiple lung masses in the right upper lobes suggesting metastatic disease. She had a PET scan at the same time, which showed all the masses were hypermetabolic. At that time, no further workup was pursued due to her debility. Now, she comes in with a fall in her CT chest showing significant enlargement of the right upper lobe pleural based necrotic mass along with multiple other lung masses and tiny nodules. These findings are highly suggestive of metastatic disease. she also has sternal fracture. 2. Underlying chronic obstructive pulmonary disease. 3. 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 4. Severe debility. RECOMMENDATIONS: 1. Unfortunately, the patient is a poor candidate for any form of treatment and she is not the best candidate for pursuing with biopsy in case if Oncology suspect that there could be a new lung primary. Due to her poor functional status, she is not a candidate for chemotherapy and I do not see a need for any further invasive testing. I have informed this to the patient and she is not interested in any further chemotherapy. 2. I would recommend that the patient should be followed by palliative care and consider home hospice. 3. Supportive care. 4. Discussed with Dr. Wilson. 5. Continue present bronchodilators. 6. Discussed with RN. MAURY PRECIADO MD DR: LORRAINE/jeremías JOB#: [id number] / [id number] TRES
--- NOTE | 2019-08-22 14:38 | PDOC2 ---
PALLIATIVE CARE Palliative Care Note Palliative Care Consult requested by Dr. Terrell to address plan of care. Medical Assessment per medical record; 1. 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 In 06/2018, she had an abnormal CT chest with multiple lung masses in the right upper lobes suggesting metastatic disease. She had a PET scan at the same time, which showed all the masses were hypermetabolic. At that time, no further workup was pursued due to her debility. Now, she comes in with a fall in her CT chest showing significant enlargement of the right upper lobe pleural based mass along with multiple other lung masses and tiny nodules. These findings are highly suggestive of metastatic disease. 2. Underlying chronic obstructive pulmonary disease. 3. 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 4. Severe debility. RECOMMENDATIONS: 1. Unfortunately, the patient is a poor candidate for any form of treatment and she is not the best candidate for pursuing with biopsy in case if Oncology suspect that there could be a new lung primary. Due to her poor functional status, she is not a candidate for chemotherapy and I do not see a need for any further invasive testing. I have informed this to the patient and she is not interested in any further chemotherapy. 2. I would recommend that the patient should be followed by palliative care and consider home hospice. 3. Supportive care. Patient seen at 0845. Alert and oriented. States she lives by herself. Neighbor Sky ([phone]) check in frequently. and son . Has brother in-law Singh who she was going to ask about helping making decisions but has changed her mind and would like to have Don neighbor help make decisions. Patient states she would like to know what her options are for treatment. Had said yesterday she did not want anything but has changed her mind about looking at options. Confirmed code Status: DNR/DNI. 1330 Attempted to reach Don. Message left to return call. Will continue to try to reach Don and discuss plan. Spoke with Breanne VARMA to assist with AD. Onc note reviewed. [address] Bobby review. Patient and Don have decided to focus on comfort. Patient is progressively more confused this afternoon and evening. Dr. Wilson informed earlier. No orders. Unable to redirect. "I need to go to the kitchen..." attempted to reach Don to discuss plan of care. Message left to return call. ALMA PHELAN Aug 22, 2019 14:38
[2019-08-22 15:00] VITALS: BP 146/70
--- NOTE | 2019-08-22 15:08 | RAD ---
CT CHEST W/CONTRAST History: Lung mass. Technique: CT of the chest was performed with contrast. Coronal and sagittal reconstructions were performed. Exposure: One or more of the following individualized dose reduction techniques were utilized for this examination: 1. Automated exposure control 2. Adjustment of the mA and/or kV according to patient size 3. Use of iterative reconstruction technique. Contrast: 75 mL Omnipaque 300 IV contrast. Comparison: Chest x-ray August 20, 2019. PET/CT July 15, 2018. Chest CT June 22, 2018. Findings: Chest: Multinodular thyroid. Small chronic appearing right hilar lymph nodes largest measures 1.1 x 0.9 cm. Large necrotic right upper lobe mass measures 4.7 x 2.9 cm compared to 1.3 x 1.0 cm previously. The mass invades the adjacent anterior pleura. There is slight heterogeneous appearance of the adjacent right anterior second rib, may represent involvement. Additional right upper lobe masses have increased compared to prior. Right anterior upper lobe groundglass opacities with septal thickening, may represent lymphangitic spread. Increased left upper lobe nodule measures 1.2 x 0.7 cm compared to 0.8 x 0.67 m previously. Significantly increased left lower lobe mass measures 2.7 x 2.3 cm (compared to 1.2 x 0.7 cm). There are regions of central necrosis. Left upper lobe fissure-based nodule, unchanged. Moderate pulmonary emphysema. No pleural effusion. Secretions within the bilateral bronchi and prominent within the left lower lobe. Upper abdomen: Bilateral renal cysts. Mild intrahepatic and extra hepatic biliary ductal dilatation, likely due to postcholecystectomy state. Bones: Acute mid sternal fracture with mild angulation. Impression: 1. Acute mid sternal body fracture. 2. Significantly increased right upper lobe necrotic mass with adjacent lymphangitic spread and chest wall invasion, highly concerning for primary malignancy. 3. Additional increased pulmonary nodules bilaterally significantly increased within the left lower lobe concerning for metastasis. 4. Necrotic metastatic right hilar lymph nodes. 5. Secretions within the bilateral bronchi most prominent within the left lower lobe. 6. Moderate pulmonary emphysema. 7. Multinodular thyroid. Electronically signed by: Livan Mixon DO (08/22/2019 3:06 PM) [id number]
--- NOTE | 2019-08-22 15:16 | PDOC ---
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 PET scan showed all masses were hypermetabolic. They were predominantly in the right upper lobe. At that time, there was decision made not to pursue further evaluation. She came into the hospital after a fall. She fell in her kitchen. She had a CT of the head done in the ER, which showed no fracture. There was acute subarachnoid hemorrhage seen surrounding both cerebral hemispheres.Chest x-ray shows significantly increased size of right upper lobe mass.She has been losing weight. She has chronic hoarseness. Pt. changing opinion about possible treatment- considering options. Vital Signs Vital Signs Date Time Temp Pulse Resp B/P (MAP) Pulse Ox O2 Delivery O2 Flow Rate FiO2 08/22/19 11:00 97.8 79 14 116/61 (79) 94 Room Air 97.8 08/22/19 09:55 Room Air 08/22/19 08:53 Room Air 08/22/19 08:00 Room Air 08/22/19 07:00 98.4 121 16 166/84 (111) 94 Room Air 98.4 08/22/19 03:00 98.8 98 18 141/66 (91) 93 Room Air 98.8 08/21/19 23:00 99.0 85 18 119/98 (105) 92 Room Air 99.0 08/21/19 20:15 Room Air 08/21/19 19:00 98.2 69 18 135/60 (85) 92 Room Air 98.2 08/21/19 16:54 Room Air 08/21/19 15:46 Room Air I & O Intake and Output 08/22/19 06:59 Intake Total 270 ml Balance 270 ml Intake Oral 270 ml # Voids 9 PHYSICAL EXAM Physical Exam Sitting upright in chair, awake/alert appears thinner than last encounter 1 mo ago HEENT=NCAT BS- distant, but clear S1,S2 clear Back- mild tender lumbar paraspinous bilat LE's DTR's 1+ ASSESSMENT/PLAN Assessment/Plan Discussed pain mgmt- pt. comfortable with p.o. hydrocodone F/U as scheduled PRAFUL CHOUDHURY MD Aug 22, 2019 15:16
--- NOTE | 2019-08-22 16:34 | PDOC ---
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 1. Stage [address] 08/22/19; She decided last year that she did not want any evaluation or therapy and her wishes remain the same at present. I did tell her to after school counselor further about options which would likely be chemo and or immunotherapy in most circumstances, she would have to have a biopsy, but she prefers hospice, no bx. Her goals are to go home. I d/w RN, Sharon and Sky. Comment Review of Relevant I have reviewed the following items [place] (where applicable) has been applied. Labs Laboratory Tests Test 08/20/19 19:50 08/20/19 20:35 White Blood Count 11.4 x10^3/uL (4.0-11.0) Red Blood Count 4.39 x10^6/uL (3.50-5.40) Hemoglobin 13.6 g/dL (12.0-15.5) Hematocrit 41.0 % (36.0-47.0) Mean Corpuscular Volume 93 fL (79-100) Mean Corpuscular Hemoglobin 31 pg (25-35) Mean Corpuscular Hemoglobin Concent 33 g/dL (31-37) Red Cell Distribution Width 13.2 % (11.5-14.5) Platelet Count 270 x10^3/uL (140-400) Neutrophils (%) (Auto) 86 % (31-73) Lymphocytes (%) (Auto) 9 % (24-48) Monocytes (%) (Auto) 5 % (0-9) Eosinophils (%) (Auto) 0 % (0-3) Basophils (%) (Auto) 0 % (0-3) Neutrophils # (Auto) 9.8 x10^3/uL (1.8-7.7) Lymphocytes # (Auto) 1.1 x10^3/uL (1.0-4.8) Monocytes # (Auto) 0.5 x10^3/uL (0.0-1.1) Eosinophils # (Auto) 0.0 x10^3/uL (0.0-0.7) Basophils # (Auto) 0.1 x10^3/uL (0.0-0.2) Segmented Neutrophils % 82 % (35-66) Band Neutrophils % 1 % (0-9) Lymphocytes % 13 % (24-48) Monocytes % 4 % (0-10) Platelet Estimate Adequate (ADEQUATE) Prothrombin Time 12.8 SEC (11.7-14.0) Prothromb Time International Ratio 1.0 (0.8-1.1) Sodium Level 141 mmol/L (136-145) Potassium Level 4.2 mmol/L (3.5-5.1) Chloride Level 102 mmol/L (98-107) Carbon Dioxide Level 31 mmol/L (21-32) Anion Gap 8 (6-14) Blood Urea Nitrogen 13 mg/dL (7-20) Creatinine 0.7 mg/dL (0.6-1.0) Estimated GFR (Cockcroft-Gault) 80.1 BUN/Creatinine Ratio 19 (6-20) Glucose Level 112 mg/dL (70-99) Calcium Level 10.3 mg/dL (8.5-10.1) Total Bilirubin 0.3 mg/dL (0.2-1.0) Aspartate Amino Transf (AST/SGOT) 16 U/L (15-37) Alanine Aminotransferase (ALT/SGPT) 13 U/L (14-59) Alkaline Phosphatase 122 U/L (46-116) Troponin I Quantitative < 0.017 ng/mL (0.000-0.055) Total Protein 8.1 g/dL (6.4-8.2) Albumin 3.5 g/dL (3.4-5.0) Albumin/Globulin Ratio 0.8 (1.0-1.7) Urine Collection Type Unknown Urine Color Yellow Urine Clarity Clear Urine pH 6.0 Urine Specific Souris 1.015 Urine Protein Negative mg/dL (NEG-TRACE) Urine Glucose (UA) Negative mg/dL (NEG) Urine Ketones (Stick) Trace mg/dL (NEG) Urine Blood Negative (NEG) Urine Nitrite Negative (NEG) Urine Bilirubin Negative (NEG) Urine Urobilinogen Dipstick 0.2 mg/dL (0.2 mg/dL) Urine Leukocyte Esterase Moderate (NEG) Urine RBC 0 /HPF (0-2) Urine WBC 11-20 /HPF (0-4) Urine Squamous Epithelial Cells Few /LPF Urine Bacteria Many /HPF (0-FEW) Urine Hyaline Casts Few /HPF Urine Mucus Mod /LPF Medications Current Medications Ondansetron HCl (Zofran) 4 mg PRN Q8HRS PRN IV NAUSEA/VOMITING Last administered on 08/20/19at 22:27; Start 08/20/19 at 22:15; Stop 08/21/19 at 22:14; Status DC Morphine Sulfate (Morphine Sulfate) 4 mg PRN Q2HR PRN IV PAIN Last administered on 08/20/19at 22:26; Start 08/20/19 at 22:15; Stop 08/21/19 at 22:14; Status DC Sodium Chloride 1,000 ml @ 75 mls/hr [id number] IV Last administered on 08/21/19at 00:06; Start 08/20/19 at 22:15; Stop 08/21/19 at 22:14; Status DC Ceftriaxone Sodium (Rocephin) 1 gm 1X ONCE IVP Last administered on 08/20/19 22:25; Start 08/20/19 at 22:15; Stop 08/20/19 at 22:16; Status DC Doxycycline Hyclate 100 mg/ Dextrose 100 ml @ 50 mls/hr 1X ONCE IV Last administered on 08/20/19at 22:28; Start 08/20/19 at 22:15; Stop 08/21/19 at 00:14; Status DC Docusate Sodium (Colace) 100 mg BID PO ; Start 08/21/19 at 13:00 Gabapentin (Neurontin) 200 mg TID PO Last administered on 08/22/19at 14:35; Start 08/21/19 at 14:00 Acetaminophen/ Hydrocodone Bitart (Lortab 5/325) 1 tab PRN Q6HRS PRN PO PAIN Last administered on 08/22/19at 08:53; Start 08/21/19 at 13:15 Sertraline HCl (Zoloft) 25 mg DAILY PO Last administered on 08/22/19 08:52; Start 08/21/19 at 14:00 Non-Formulary Medication (Besifloxacin Hcl (Besivance)) 1 drop TID OS ; Start 08/21/19 at 14:00; Status UNV Calcium/Vitamin D (Oscal D 500mg/ 200uts) 1 tab DAILY PO Last administered on 08/22/19 08:51; Start 08/21/19 at 14:00 Multivitamins/ Minerals (I-Peng) 1 tab DAILY PO Last administered on 08/22/19 08:51; Start 08/21/19 at 14:00 Multivitamins (Thera M Plus) 1 tab DAILY PO Last administered on 08/22/19 08:51; Start 08/21/19 at 14:00 Pantoprazole Sodium (Protonix) 40 mg DAILYAC PO Last administered on 08/22/19 08:52; Start 08/21/19 at 14:00 Ceftriaxone Sodium (Rocephin) 1 gm Q24H IVP Last administered on 08/21/19 22:04; Start 08/21/19 at 21:00; Stop 08/22/19 at 08:45; Status DC Morphine Sulfate (Roxanol Conc) 20 mg PRN Q3HRS PRN SL PAIN; Start 08/22/19 at 08:45 Lorazepam (Ativan Intensol) 2 mg PRN Q6HRS PRN SL ANXIETY / AGITATION; Start 08/22/19 at 08:45 Sodium Chloride 1,000 ml @ 100 mls/hr Q10H IV Last administered on 08/22/19 14:28; Start 08/22/19 at 11:00 Diphenhydramine HCl (Benadryl) 25 mg 1X ONCE IVP Last administered on 08/22/19 11:27; Start 08/22/19 at 11:30; Stop 08/22/19 at 11:31; Status DC Methylprednisolone Sodium Succinate (SOLU-Medrol 40MG VIAL) 40 mg 1X ONCE IV Last administered on 08/22/19 11:27; Start 08/22/19 at 11:30; Stop 08/22/19 at 11:31; Status DC Iohexol (Omnipaque 300 Mg/ml) 75 ml 1X ONCE IV Last administered on 08/22/19at 11:35; Start 08/22/19 at 11:30; Stop 08/22/19 at 11:31; Status DC Info (CONTRAST GIVEN -- Rx MONITORING) 1 each PRN DAILY PRN MC SEE COMMENTS; Start 08/22/19 at 11:30; Stop 08/24/19 at 11:29 Ceftriaxone Sodium (Rocephin) 1 gm Q24H IVP ; Start 08/22/19 at 21:00 Active Scripts Active Cipro (Ciprofloxacin Hcl) 500 Mg Tablet 1 Tab PO BID Reported Sertraline Hcl 25 Mg Tablet 25 Mg PO DAILY Vision Plus Lutein Vitamin Tab (Multivitamin W-Minerals/Lutein) 1 Each Tablet 1 Each PO BID Calcium 500 + D Tablet (Calcium Carbonate/Vitamin D3) 1 Each Tablet 1 Each PO DAILY Besivance (Besifloxacin Hcl) 5 Ml Drops.susp 1 Drop OS TID Hydrocodone-Apap 5-325 (Hydrocodone Bit/Acetaminophen) 1 Each Tablet 1 Tab PO PRN Q6HRS PRN Gabapentin (Gabapentin) 100 Mg Capsule 200 Mg PO TID Stool Softener (Docusate Sodium) 100 Mg Capsule 100 Mg PO Q48HR Centrum Silver Tablet (Multivits-Min/Fa/Lycopene/Lut) 1 Each Tablet 1 Each PO DAILY Omeprazole 20 Mg Tablet.dr 20 Mg PO DAILY Vitals/I & O Vital Sign - Last 24 Hours 08/21/19 08/21/19 08/21/19 08/21/19 16:54 19:00 20:15 23:00 Temp 98.2 99.0 98.2 99.0 Pulse 69 85 Resp 18 18 B/P (MAP) 135/60 (85) 119/98 (105) Pulse Ox 92 92 O2 Delivery Room Air Room Air Room Air Room Air 08/22/19 08/22/19 08/22/19 08/22/19 03:00 07:00 08:00 08:53 Temp 98.8 98.4 98.8 98.4 Pulse 98 121 Resp 18 16 B/P (MAP) 141/66 (91) 166/84 (111) Pulse Ox 93 94 O2 Delivery Room Air Room Air Room Air Room Air 08/22/19 08/22/19 08/22/19 09:55 11:00 15:00 Temp 97.8 97.7 97.8 97.7 Pulse 79 92 Resp 14 16 B/P (MAP) 116/61 (79) 146/70 (95) Pulse Ox 94 97 O2 Delivery Room Air Room Air Room Air Intake and Output 08/21/19 08/21/19 08/22/19 15:00 23:00 07:00 Intake Total 180 ml 90 ml Balance 180 ml 90 ml PARISH OTT MD Aug 22, 2019 16:34
[2019-08-22 19:00] VITALS: BP 184/89
[2019-08-22] MEDS: CIPROFLOXACIN HCL 250 MG TABLET. PO SCH (20:40)
[2019-08-22] MEDS ORDERED: cefTRIAXone IV Push 1 GM VIAL. IVP SCH (21:00)
[2019-08-22 23:00] VITALS: BP 156/84
[2019-08-23] MEDS: PANTOPRAZOLE 40 MG TABLET.DR. PO SCH (06:11)
[2019-08-23 07:00] VITALS: BP 173/89
[2019-08-23 07:19] LABS: BASO % 0 % (0-3); EOS % 0 % (0-3); HEMATOCRIT 36.1 % (36.0-47.0); HEMOGLOBIN 11.9 g/dL (12.0-15.5); LYMPH # 1.6 x10^3/uL (1.0-4.8); LYMPH % 14 % (24-48); MEAN CORPUSCULAR HEMOGLOBIN 30 pg (25-35); MEAN CORPUSCULAR HGB CONC 33 g/dL (31-37); MEAN CORPUSCULAR VOLUME 93 fL (79-100); MONO # 0.9 x10^3/uL (0.0-1.1); MONO % 8 % (0-9); NEUT # 9.3 x10^3/uL (1.8-7.7); NEUT % 78 % (31-73); PLATELET COUNT 264 x10^3/uL (140-400); RED CELL DISTRIBUTION WIDTH 13.3 % (11.5-14.5); WHITE BLOOD COUNT 11.9 x10^3/uL (4.0-11.0)
--- NOTE | 2019-08-23 07:41 | PDOC2 ---
PALLIATIVE CARE Palliative Care Note Palliative Care Spoke with Don/neighbor/DPOA last evening. Shared patient more confused last 2-3 weeks. He is unable to care for her 08/06. Patient had shared that she wanted him to be her POA for financial as well. Had been in the process of getting this accomplished. Don shared that patient has funds available for care. Also will check into secondary insurance for coverage of help at home. Patient restless and agitated periodically throughout night.--trying to get out of bed. Will be available to meet with Sky if needed ALMA PHELAN Aug 23, 2019 07:41
[2019-08-23] MEDS: SERTRALINE 25 MG TABLET. PO SCH (08:46)
[2019-08-23] MEDS: CIPROFLOXACIN HCL 250 MG TABLET. PO SCH (08:47)
[2019-08-23] MEDS: GABAPENTIN 100 MG CAPSULE. PO SCH (08:47)
[2019-08-23] MEDS: MULTIVITAMIN with MINERAL TABLET. PO SCH (08:49)
[2019-08-23] MEDS: MULTIVITAMIN I-VITE TABLET. PO SCH (08:49)
[2019-08-23] MEDS: CALCIUM CARB/VIT D3 500/200 TABLET. PO SCH (08:49)
[2019-08-23] MEDS: DOCUSATE SODIUM 100 MG CAPSULE. PO SCH (08:49)
--- NOTE | 2019-08-23 09:02 | PDOC ---
PROGRESS NOTES Subjective Subjective HPI -f/u of Stage 4 lung ca ROS - no CP Objective Objective Vital Signs Date Time Temp Pulse Resp B/P (MAP) Pulse Ox O2 Delivery O2 Flow Rate FiO2 08/23/19 08:11 Room Air 08/23/19 07:00 98.6 92 14 173/89 (117) 93 98.6 Intake and Output 08/23/19 06:59 Intake Total 125 ml Balance 125 ml Intake Oral 125 ml # Voids 4 # Bowel Movements 2 Physical Exam Heart: Normal S1, Normal S2 General: Alert, Oriented X3 Lungs: Clear to auscultation Neuro: Normal speech Psych/Mental Status: Mental status NL Assessment Assessment Problems Medical Problems: (1) Laceration Status: Acute Assessment/Plan 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 1. Stage [address] 08/22/19; She decided last year that she did not want any evaluation or therapy and her wishes remain the same at present. I did tell her to field counsel further about options which would likely be chemo and or immunotherapy in most circumstances, she would have to have a biopsy, but she prefers hospice, no bx. 2. Anemia - mild, monitor prn Her goals are to go home. I d/w RN Comment Review of Relevant I have reviewed the following items [place] (where applicable) has been applied. Labs Laboratory Tests Test 08/23/19 05:25 White Blood Count 11.9 x10^3/uL (4.0-11.0) Red Blood Count 3.90 x10^6/uL (3.50-5.40) Hemoglobin 11.9 g/dL (12.0-15.5) Hematocrit 36.1 % (36.0-47.0) Mean Corpuscular Volume 93 fL (79-100) Mean Corpuscular Hemoglobin 30 pg (25-35) Mean Corpuscular Hemoglobin Concent 33 g/dL (31-37) Red Cell Distribution Width 13.3 % (11.5-14.5) Platelet Count 264 x10^3/uL (140-400) Neutrophils (%) (Auto) 78 % (31-73) Lymphocytes (%) (Auto) 14 % (24-48) Monocytes (%) (Auto) 8 % (0-9) Eosinophils (%) (Auto) 0 % (0-3) Basophils (%) (Auto) 0 % (0-3) Neutrophils # (Auto) 9.3 x10^3/uL (1.8-7.7) Lymphocytes # (Auto) 1.6 x10^3/uL (1.0-4.8) Monocytes # (Auto) 0.9 x10^3/uL (0.0-1.1) Eosinophils # (Auto) 0.0 x10^3/uL (0.0-0.7) Basophils # (Auto) 0.0 x10^3/uL (0.0-0.2) Calcium Level 9.5 mg/dL (8.5-10.1) Laboratory Tests Test 08/23/19 05:25 White Blood Count 11.9 x10^3/uL (4.0-11.0) Red Blood Count 3.90 x10^6/uL (3.50-5.40) Hemoglobin 11.9 g/dL (12.0-15.5) Hematocrit 36.1 % (36.0-47.0) Mean Corpuscular Volume 93 fL (79-100) Mean Corpuscular Hemoglobin 30 pg (25-35) Mean Corpuscular Hemoglobin Concent 33 g/dL (31-37) Red Cell Distribution Width 13.3 % (11.5-14.5) Platelet Count 264 x10^3/uL (140-400) Neutrophils (%) (Auto) 78 % (31-73) Lymphocytes (%) (Auto) 14 % (24-48) Monocytes (%) (Auto) 8 % (0-9) Eosinophils (%) (Auto) 0 % (0-3) Basophils (%) (Auto) 0 % (0-3) Neutrophils # (Auto) 9.3 x10^3/uL (1.8-7.7) Lymphocytes # (Auto) 1.6 x10^3/uL (1.0-4.8) Monocytes # (Auto) 0.9 x10^3/uL (0.0-1.1) Eosinophils # (Auto) 0.0 x10^3/uL (0.0-0.7) Basophils # (Auto) 0.0 x10^3/uL (0.0-0.2) Calcium Level 9.5 mg/dL (8.5-10.1) Medications Current Medications Ondansetron HCl (Zofran) 4 mg PRN Q8HRS PRN IV NAUSEA/VOMITING Last administered on 08/20/19 22:27; Start 08/20/19 at 22:15; Stop 08/21/19 at 22:1 4; Status DC Morphine Sulfate (Morphine Sulfate) 4 mg PRN Q2HR PRN IV PAIN Last administered on 08/20/19 22:26; Start 08/20/19 at 22:15; Stop 08/21/19 at 22:14; Status DC Sodium Chloride 1,000 ml @ 75 mls/hr [id number] IV Last administered on 08/21/19 00:06; Start 08/20/19 at 22:15; Stop 08/21/19 at 22:14; Status DC Ceftriaxone Sodium (Rocephin) 1 gm 1X ONCE IVP Last administered on 08/20/19 22:25; Start 08/20/19 at 22:15; Stop 08/20/19 at 22:16; Status DC Doxycycline Hyclate 100 mg/ Dextrose 100 ml @ 50 mls/hr 1X ONCE IV Last administered on 08/20/19 22:28; Start 08/20/19 at 22:15; Stop 08/21/19 at 00:14; Status DC Docusate Sodium (Colace) 100 mg BID PO Last administered on 08/23/19 08:49; Start 08/21/19 at 13:00 Gabapentin (Neurontin) 200 mg TID PO Last administered on 08/23/19 08:47; Start 08/21/19 at 14:00 Acetaminophen/ Hydrocodone Bitart (Lortab 5/325) 1 tab PRN Q6HRS PRN PO PAIN Last administered on 08/22/19 08:53; Start 08/21/19 at 13:15 Sertraline HCl (Zoloft) 25 mg DAILY PO Last administered on 08/23/19 08:46; Start 08/21/19 at 14:00 Non-Formulary Medication (Besifloxacin Hcl (Besivance)) 1 drop TID OS ; Start 08/21/19 at 14:00; Status UNV Calcium/Vitamin D (Oscal D 500mg/ 200uts) 1 tab DAILY PO Last administered on 08/22/19 08:51; Start 08/21/19 at 14:00 Multivitamins/ Minerals (I-Peng) 1 tab DAILY PO Last administered on 08/22/19 08:51; Start 08/21/19 at 14:00 Multivitamins (Thera M Plus) 1 tab DAILY PO Last administered on 08/22/19 08:51; Start 08/21/19 at 14:00 Pantoprazole Sodium (Protonix) 40 mg DAILYAC PO Last administered on 08/23/19 06:11; Start 08/21/19 at 14:00 Ceftriaxone Sodium (Rocephin) 1 gm Q24H IVP Last administered on 08/21/19 22:04; Start 08/21/19 at 21:00; Stop 08/22/19 at 08:45; Status DC Morphine Sulfate (Roxanol Conc) 20 mg PRN Q3HRS PRN SL PAIN Last administered on 08/23/19 08:47; Start 08/22/19 at 08:45 Lorazepam (Ativan Intensol) 2 mg PRN Q6HRS PRN SL ANXIETY / AGITATION; Start 08/22/19 at 08:45 Sodium Chloride 1,000 ml @ 100 mls/hr Q10H IV Last administered on 08/22/19 14:28; Start 08/22/19 at 11:00; Stop 08/22/19 at 19:30; Status DC Diphenhydramine HCl (Benadryl) 25 mg 1X ONCE IVP Last administered on 08/22/19 11:27; Start 08/22/19 at 11:30; Stop 08/22/19 at 11:31; Status DC Methylprednisolone Sodium Succinate (SOLU-Medrol 40MG VIAL) 40 mg 1X ONCE IV Last administered on 08/22/19 11:27; Start 08/22/19 at 11:30; Stop 08/22/19 at 11:31; Status DC Iohexol (Omnipaque 300 Mg/ml) 75 ml 1X ONCE IV Last administered on 08/22/19 11:35; Start 08/22/19 at 11:30; Stop 08/22/19 at 11:31; Status DC Info (CONTRAST GIVEN -- Rx MONITORING) 1 each PRN DAILY PRN MC SEE COMMENTS; Start 08/22/19 at 11:30; Stop 08/24/19 at 11:29 Ceftriaxone Sodium (Rocephin) 1 gm Q24H IVP ; Start 08/22/19 at 21:00; Stop 08/22/19 at 19:30; Status DC Ciprofloxacin (Cipro) 500 mg BID PO Last administered on 08/23/19at 08:47; Start 08/22/19 at 21:00 Active Scripts Active Cipro (Ciprofloxacin Hcl) 500 Mg Tablet 1 Tab PO BID Reported Sertraline Hcl 25 Mg Tablet 25 Mg PO DAILY Vision Plus Lutein Vitamin Tab (Multivitamin W-Minerals/Lutein) 1 Each Tablet 1 Each PO BID Calcium 500 + D Tablet (Calcium Carbonate/Vitamin D3) 1 Each Tablet 1 Each PO DAILY Besivance (Besifloxacin Hcl) 5 Ml Drops.susp 1 Drop OS TID Hydrocodone-Apap 5-325 (Hydrocodone Bit/Acetaminophen) 1 Each Tablet 1 Tab PO PRN Q6HRS PRN Gabapentin (Gabapentin) 100 Mg Capsule 200 Mg PO TID Stool Softener (Docusate Sodium) 100 Mg Capsule 100 Mg PO Q48HR Centrum Silver Tablet (Multivits-Min/Fa/Lycopene/Lut) 1 Each Tablet 1 Each PO DAILY Omeprazole 20 Mg Tablet.dr 20 Mg PO DAILY Vitals/I & O Vital Sign - Last 24 Hours 08/22/19 08/22/19 08/22/19 08/22/19 09:55 11:00 15:00 19:00 Temp 97.8 97.7 97.4 97.8 97.7 97.4 Pulse 79 92 111 Resp 14 16 18 B/P (MAP) 116/61 (79) 146/70 (95) 184/89 (120) Pulse Ox 94 97 97 O2 Delivery Room Air Room Air Room Air Room Air 08/22/19 08/22/19 08/23/19 08/23/19 20:00 23:00 03:00 07:00 Temp 98.4 98.6 98.4 98.6 Pulse 96 92 Resp 18 18 14 B/P (MAP) 156/84 (108) 173/89 (117) Pulse Ox 95 93 O2 Delivery Room Air Room Air Room Air 08/23/19 08:11 O2 Delivery Room Air Intake and Output 08/22/19 08/22/19 08/23/19 14:59 22:59 06:59 Intake Total 125 ml Balance 125 ml PARISH OTT MD Aug 23, 2019 09:02
[2019-08-23 09:14] LABS: CALCIUM PTH 9.4 mg/dL (8.7-10.3); CREATININE PTH 0.61 mg/dL (0.57-1.00); PHOSPHORUS PTH 3.2 mg/dL (2.5-4.5); PTH INTACT 20 pg/mL (15-65)
--- NOTE | 2019-08-23 09:32 | PDOC ---
PULMONARY PROGRESS NOTES Vitals Vital Signs Date Time Temp Pulse Resp B/P (MAP) Pulse Ox O2 Delivery O2 Flow Rate FiO2 08/23/19 08:11 Room Air 08/23/19 07:00 98.6 92 14 173/89 (117) 93 98.6 Labs Laboratory Tests Test 08/22/19 11:25 08/23/19 05:25 Estimated GFR (Non- 85 (>59) EGFR 98 (>59) PTH (Intact) Specimen Description Comment (.) Parathyroid Hormone (Intact) 20 pg/mL (15-65) Calcium (PTH Intact) 9.4 mg/dL (8.7-10.3) Creatinine (PTH Intact) 0.61 mg/dL (0.57-1.00) Phosphorus (PTH Intact) 3.2 mg/dL (2.5-4.5) White Blood Count 11.9 x10^3/uL (4.0-11.0) Red Blood Count 3.90 x10^6/uL (3.50-5.40) Hemoglobin 11.9 g/dL (12.0-15.5) Hematocrit 36.1 % (36.0-47.0) Mean Corpuscular Volume 93 fL (79-100) Mean Corpuscular Hemoglobin 30 pg (25-35) Mean Corpuscular Hemoglobin Concent 33 g/dL (31-37) Red Cell Distribution Width 13.3 % (11.5-14.5) Platelet Count 264 x10^3/uL (140-400) Neutrophils (%) (Auto) 78 % (31-73) Lymphocytes (%) (Auto) 14 % (24-48) Monocytes (%) (Auto) 8 % (0-9) Eosinophils (%) (Auto) 0 % (0-3) Basophils (%) (Auto) 0 % (0-3) Neutrophils # (Auto) 9.3 x10^3/uL (1.8-7.7) Lymphocytes # (Auto) 1.6 x10^3/uL (1.0-4.8) Monocytes # (Auto) 0.9 x10^3/uL (0.0-1.1) Eosinophils # (Auto) 0.0 x10^3/uL (0.0-0.7) Basophils # (Auto) 0.0 x10^3/uL (0.0-0.2) Calcium Level 9.5 mg/dL (8.5-10.1) Laboratory Tests Test 08/22/19 11:25 08/23/19 05:25 Estimated GFR (Non- 85 (>59) EGFR 98 (>59) PTH (Intact) Specimen Description Comment (.) Parathyroid Hormone (Intact) 20 pg/mL (15-65) Calcium (PTH Intact) 9.4 mg/dL (8.7-10.3) Creatinine (PTH Intact) 0.61 mg/dL (0.57-1.00) Phosphorus (PTH Intact) 3.2 mg/dL (2.5-4.5) White Blood Count 11.9 x10^3/uL (4.0-11.0) Red Blood Count 3.90 x10^6/uL (3.50-5.40) Hemoglobin 11.9 g/dL (12.0-15.5) Hematocrit 36.1 % (36.0-47.0) Mean Corpuscular Volume 93 fL (79-100) Mean Corpuscular Hemoglobin 30 pg (25-35) Mean Corpuscular Hemoglobin Concent 33 g/dL (31-37) Red Cell Distribution Width 13.3 % (11.5-14.5) Platelet Count 264 x10^3/uL (140-400) Neutrophils (%) (Auto) 78 % (31-73) Lymphocytes (%) (Auto) 14 % (24-48) Monocytes (%) (Auto) 8 % (0-9) Eosinophils (%) (Auto) 0 % (0-3) Basophils (%) (Auto) 0 % (0-3) Neutrophils # (Auto) 9.3 x10^3/uL (1.8-7.7) Lymphocytes # (Auto) 1.6 x10^3/uL (1.0-4.8) Monocytes # (Auto) 0.9 x10^3/uL (0.0-1.1) Eosinophils # (Auto) 0.0 x10^3/uL (0.0-0.7) Basophils # (Auto) 0.0 x10^3/uL (0.0-0.2) Calcium Level 9.5 mg/dL (8.5-10.1) Medications Active Scripts Medications Dose Route/Sig Max Daily Dose Days Date Category Cipro (Ciprofloxacin Hcl) 500 Mg Tablet 1 Tab PO BID 08/22/19 Rx Sertraline Hcl 25 Mg Tablet 25 Mg PO DAILY 07/29/18 Reported Vision Plus Lutein Vitamin Tab (Multivitamin W-Minerals/Lutein) 1 Each Tablet 1 Each PO BID 05/04/17 Reported Calcium 500 + D Tablet (Calcium Carbonate/Vitamin D3) 1 Each Tablet 1 Each PO DAILY 02/27/16 Reported Besivance (Besifloxacin Hcl) 5 Ml Drops.susp 1 Drop OS TID 08/02/14 Reported Hydrocodone-Apap 5-325 (Hydrocodone Bit/Acetaminophen) 1 Each Tablet 1 Tab PO PRN Q6HRS PRN 05/26/14 Reported Gabapentin (Gabapentin) 100 Mg Capsule 200 Mg PO TID 05/26/14 Reported Stool Softener (Docusate Sodium) 100 Mg Capsule 100 Mg PO Q48HR 11/01/13 Reported Centrum Silver Tablet (Multivits-Min/Fa/Lycopene/Lut) 1 Each Tablet 1 Each PO DAILY 11/01/13 Reported Omeprazole 20 Mg Tablet.dr 20 Mg PO DAILY 11/01/13 Reported MACIEL MUNROE MD Aug 23, 2019 09:32
--- NOTE | 2019-08-23 09:38 | NUR ---
rests quietly in bed. hob elevated. has a productive cough ; white/juarez in color. she wants to go home. tried morphine liquid; does not like the taste. would rather have the pill. she refused all the vitamins this am
[2019-08-23 11:00] VITALS: BP 113/66
--- NOTE | 2019-08-23 11:40 | PDOC ---
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 Acute mid sternal body fracture. 2. Significantly increased right upper lobe necrotic mass with adjacent lymphangitic spread and chest wall invasion, highly concerning for primary malignancy. 3. Additional increased pulmonary nodules bilaterally significantly increased within the left lower lobe concerning for metastasis. 4. Necrotic metastatic right hilar lymph nodes. 5. Secretions within the bilateral bronchi most prominent within the left lower lobe. 6. Moderate pulmonary emphysema. 7. Multinodular thyroid. D/w RN and vp digital marketing social media and crm 08/22/19 Pt was seen by Dr. Abbasi at bedside Was supposed to be d/c to hospice after review of weekend notes (Seen by heme onc) BUT Now she says she wants to know what she has Dr. Wilson spent > 30 mins in room, discussing with her the course if we were to investigate and possibly treat Pt LIVES ALONE AND HAS NO ONE Dr. Wilson signed the outside DNR Palliative consulted CA high 10 She is cachectic, BMI 17 with minimal subcutaneous tissue CXR: 4.5 cm masslike opacity is seen involving the right upper lobe which has increased in size since the previous examination. She jay shave smoking hx (cont to?) She LOST 10-15 lbs Vitals/I&O Vitals/I&O: Vital Signs Date Time Temp Pulse Resp B/P (MAP) Pulse Ox O2 Delivery O2 Flow Rate FiO2 08/23/19 08:11 Room Air 08/23/19 07:00 98.6 92 14 173/89 (117) 93 98.6 I & O 08/22/19 08/22/19 08/23/19 14:59 22:59 06:59 Intake Total 125 ml Balance 125 ml Physical Exam General: Alert, Oriented X3 Heart: Normal S1, Normal S2 Abdomen: Normal bowel sounds, Soft, No tenderness, No hepatosplenomegaly, No masses Extremities: No clubbing, No cyanosis, No edema, Normal pulses, No tenderness /swelling Skin: No rashes, No breakdown, No significant lesion Labs Labs: Laboratory Tests Test 08/22/19 11:25 08/23/19 05:25 Estimated GFR (Non- 85 (>59) EGFR 98 (>59) PTH (Intact) Specimen Description Comment (.) Parathyroid Hormone (Intact) 20 pg/mL (15-65) Calcium (PTH Intact) 9.4 mg/dL (8.7-10.3) Creatinine (PTH Intact) 0.61 mg/dL (0.57-1.00) Phosphorus (PTH Intact) 3.2 mg/dL (2.5-4.5) White Blood Count 11.9 x10^3/uL (4.0-11.0) Red Blood Count 3.90 x10^6/uL (3.50-5.40) Hemoglobin 11.9 g/dL (12.0-15.5) Hematocrit 36.1 % (36.0-47.0) Mean Corpuscular Volume 93 fL (79-100) Mean Corpuscular Hemoglobin 30 pg (25-35) Mean Corpuscular Hemoglobin Concent 33 g/dL (31-37) Red Cell Distribution Width 13.3 % (11.5-14.5) Platelet Count 264 x10^3/uL (140-400) Neutrophils (%) (Auto) 78 % (31-73) Lymphocytes (%) (Auto) 14 % (24-48) Monocytes (%) (Auto) 8 % (0-9) Eosinophils (%) (Auto) 0 % (0-3) Basophils (%) (Auto) 0 % (0-3) Neutrophils # (Auto) 9.3 x10^3/uL (1.8-7.7) Lymphocytes # (Auto) 1.6 x10^3/uL (1.0-4.8) Monocytes # (Auto) 0.9 x10^3/uL (0.0-1.1) Eosinophils # (Auto) 0.0 x10^3/uL (0.0-0.7) Basophils # (Auto) 0.0 x10^3/uL (0.0-0.2) Calcium Level 9.5 mg/dL (8.5-10.1) Review of Systems Review of Systems: Pt co cough with sputum Pt denies blood in sputum Pt denies [place] Pt denies n/v/d Assessment and Plan Assessmemt and Plan Problems Medical Problems: (1) Laceration Status: Acute Assessment Stage 4 Lung Ca Vocal cord SCC Subarachnoid hemorrhage post fall Anemia Cachexia COPD Cough Hoarseness Plan Supportive care Bronchodilators DVT prophylaxis PT/OT DNR [facility] to D/C hospice Comment Review of Relevant I have reviewed the following items [place] (where applicable) has been applied. Medications: Current Medications Medications (Trade) Dose Ordered Sig/Betzy Route PRN Reason Start Time Stop Time Status Last Admin Dose Admin Diphenhydramine HCl (Benadryl) 25 mg 1X ONCE IVP 08/22/19 11:30 08/22/19 11:31 DC 08/22/19 11:27 Methylprednisolone Sodium Succinate (SOLU-Medrol 40MG VIAL) 40 mg 1X ONCE IV 08/22/19 11:30 08/22/19 11:31 DC 08/22/19 11:27 Iohexol (Omnipaque 300 Mg/ml) 75 ml 1X ONCE IV 08/22/19 11:30 08/22/19 11:31 DC 08/22/19 11:35 Ciprofloxacin (Cipro) 500 mg BID PO 08/22/19 21:00 08/23/19 08:47 KEIRA VIVAR III DO Aug 23, 2019 11:40
--- NOTE | 2019-08-23 11:58 | NUR ---
SS following up with discharge planning. Clinical and referral refaxed to [facility], fax [phone], per request. SS spoke with Anita from [facility], , who stated that she was on her way to the hospital to meet with pt and DPOA. Anita reported that they could admit pt today. Palliative Care spoke with pt's DPOA. SS will await DPOA meeting with hospice and proceed accordingly with discharge planning. Dr. Candelaria notified that hospice eval and tx orders are needed.
--- NOTE | 2019-08-23 12:23 | SNU/HH DC ---
DISCHARGE ORDERS DISCHARGE INFORMATION: FINAL DIAGNOSIS Problems Medical Problems: (1) Laceration Status: Acute CONDITION ON DISCHARGE: Stable CODE STATUS: Code Status: DNR/DNI MCFP: SNF STAY <30 DAYS: No HOSPICE: HOSPICE: Yes HOSPICE EVAL & TREAT: Yes LTAC: ADMIT TO LTAC: No POST DISCHARGE ORDERS: ACTIVITY ORDERS: Bedrest today DIET AFTER DISCHARGE: Cardiac DISCHARGE MEDICATIONS: Home Meds Active Scripts Ciprofloxacin Hcl (CIPRO) 500 Mg Tablet, 1 TAB PO BID for uti, #20 TAB Prov:JEFF ECHAVARRIA MD 08/22/19 Reported Medications Sertraline Hcl (SERTRALINE HCL) 25 Mg Tablet, 25 MG PO DAILY for ANTI-DE PRESSANT, TAB 0 Refills 07/29/18 Multivitamin W-Minerals/Lutein (VISION PLUS LUTEIN VITAMIN TAB) 1 Each Tablet, 1 EACH PO BID, TAB 05/04/17 Calcium Carbonate/Vitamin D3 (CALCIUM 500 + D TABLET) 1 Each Tablet, 1 EACH PO DAILY 02/27/16 Besifloxacin Hcl (BESIVANCE) 5 Ml Drops.susp, 1 DROP OS TID, #5 ML 1 Refill 08/02/14 Hydrocodone Bit/Acetaminophen (HYDROCODONE-APAP 5-325 ) 1 Each Tablet, 1 TAB PO PRN Q6HRS PRN for PAIN, TAB 0 Refills 05/26/14 Gabapentin (GABAPENTIN ) 100 Mg Capsule, 200 MG PO TID, CAP 05/26/14 Docusate Sodium (STOOL SOFTENER) 100 Mg Capsule, 100 MG PO Q48HR 11/01/13 Multivits-Min/Fa/Lycopene/Lut (CENTRUM SILVER TABLET) 1 Each Tablet, 1 EACH PO DAILY 11/01/13 Omeprazole (OMEPRAZOLE) 20 Mg Tablet., 20 MG PO DAILY, #2 11/01/13 Discontinued Reported Medications Aspirin (ASPIR 81) 81 Mg Tablet., 81 MG PO 1X 11/01/13 KEIRA VIVAR III DO Aug 23, 2019 12:23
--- NOTE | 2019-08-23 13:30 | NUR ---
Patient discharged to home with hospice. [facility] hospice nurse and patients DPOA, Don here with patient. All belongings with patient. Discharge packet given to hospice nurse. Discharge instructions, medications, and follow up appointment discussed with patient and DPOA. Both verbalized understanding. Patient assisted out in wheelchair with staff at this time.
--- NOTE | 2019-09-16 14:02 | DS ---
DATE OF DISCHARGE: 08/23/2019 ADMISSION DIAGNOSIS: Fall with laceration to the temporal region. DISCHARGE DIAGNOSES: Resolving laceration, status post suturing; history of vocal cord squamous cell cancer with metastatic disease; spiculated lung mass; cachexia; cough; emphysema. CONSULTS: Dr. Sharon Hart and Dr. Trammell. We consulted Hematology/Oncology. PROCEDURES: Suturing of the laceration. 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 This time she actually fell and presented with a laceration to the temporal region, it was sutured. We admitted her and observed her for a couple of days. We did consult Sharon Hart, Hematology/Oncology and Pulmonary. The patient's symptoms improved. She was discharged to home with close outpatient followup. DISPOSITION: Home. ACTIVITY: As tolerated. DIET: Low sodium. MEDICATIONS: Please see the MRAD. TOTAL TIME: 32 minutes. KEIRA VIVAR DO DR: ZULMA/[email or web address] JOB#: [id number] / [id number]
== END 2019-08-23 13:30 | disposition hospice, home (50) | DRG 64 ==
LOC: ER 19:03 → 4 NORTH 22:00
PROVIDERS: ADMIT Family Medicine; ATTEND Family Medicine
PROC: 0HQ0XZZ Repair Scalp Skin, External Approach (ICD-10-PCS; principal; 2019-08-20)
DX: I60.9 Nontraumatic subarachnoid hemorrhage, unspecified (principal); E43 Unspecified severe protein-calorie malnutrition; S22.22XA Fracture of body of sternum, initial encounter for closed fracture; C34.90 Malignant neoplasm of unspecified part of unspecified bronchus or lung; C79.9 Secondary malignant neoplasm of unspecified site; R64 Cachexia; Z68.1 Body mass index [BMI] 19.9 or less, adult; E83.52 Hypercalcemia; C32.0 Malignant neoplasm of glottis; D64.9 Anemia, unspecified; E04.2 Nontoxic multinodular goiter; F17.210 Nicotine dependence, cigarettes, uncomplicated; F32.9 Major depressive disorder, single episode, unspecified; G89.29 Other chronic pain; J44.9 Chronic obstructive pulmonary disease, unspecified; M19.90 Unspecified osteoarthritis, unspecified site; K21.9 Gastro-esophageal reflux disease without esophagitis; M54.16 Radiculopathy, lumbar region; S01.91XA Laceration without foreign body of unspecified part of head, initial encounter; Z66 Do not resuscitate; Z81.8 Family history of other mental and behavioral disorders; Z82.49 Family history of ischemic heart disease and other diseases of the circulatory system; Z85.819 Personal history of malignant neoplasm of unspecified site of lip, oral cavity, and pharynx; Z86.73 Personal history of transient ischemic attack (TIA), and cerebral infarction without residual deficits; Z90.49 Acquired absence of other specified parts of digestive tract; Z90.710 Acquired absence of both cervix and uterus; Z96.642 Presence of left artificial hip joint; Z85.21 Personal history of malignant neoplasm of larynx; Z88.8 Allergy status to other drugs, medicaments and biological substances; W18.39XA Other fall on same level, initial encounter; Y93.89 Activity, other specified; Y92.090 Kitchen in other non-institutional residence as the place of occurrence of the external cause; Y99.8 Other external cause status
CPT/HCPCS: 12011; 36415; 70450; 71045; 71260; 72125; 80053; 81001; 82310; 83970; 84484; 85007; 85025; 85610; 87086; 93005; 96365; 96375; J0696; J1200; J2270; J2405; J2920; J3490; J7030; Q9967; 99285-25; G0378